=== PATIENT | male | born 1965 | race Caucasian/White ===

== ENCOUNTER 2018-04-22 20:20 | Emergency (ER) | payer SELFPAY ==
[2018-04-22 21:03] LABS: Absolute Monocytes 0.4 K/uL (0.1-1.3); Absolute Neutrophil 5.2 K/uL (1.8-8.0)
[2018-04-22 21:09] LABS: Absolute Lymphocytes (CBC) 1.5 K/uL (0.7-4.9); Basophils % 0.9 % (0-1.3); Eosinophils % 1.3 % (0-4.4); Hematocrit 40.3 % (39.6-49.0); Lymphocytes % 20.4 % (15.3-44.8); MCH 33.4 pg (27.0-35.0); MCV 94.8 fL (80-100); MPV 9.1 fL (7.6-11.3); Monocytes % 6.1 % (3.3-12.3); RBC Red Blood Cell Count 4.25 M/uL (4.33-5.43)
[2018-04-22 21:11] LABS: Protime INR 0.97
[2018-04-22 21:17] LABS: Bicarbonate 22 mEq/L (21-31); Glucose Level 136 mg/dL (65-120); Potassium 3.9 mEq/L (3.6-5.0); Sodium Level 123 mEq/L (135-145)
[2018-04-22 21:24] LABS: ALT/SGPT 17 IU/L (10-60); AST/SGOT 37 IU/L (10-42); Albumin 3.6 g/dL (3.2-5.5); Alkaline Phosphatase 94 IU/L (42-121); BUN Blood Urea Nitrogen 8 mg/dL (6-20); Bilirubin Direct 0.3 mg/dL (0-0.2); Bilirubin Total 1.4 mg/dL (0.3-1.2); Creatine Phosphokinase 196 IU/L (22-269); Magnesium 1.7 mg/dL (1.8-2.5); Protein, Total 7.7 g/dL (6.0-8.3)
[2018-04-22 21:27] LABS: CKMB Creatine Kinase MB 8.2 ng/ml (0.3-4.0)
[2018-04-22 21:30] LABS: Urine White Blood Cell Casts OK
[2018-04-22 21:31] LABS: Blood Morphology Comment NOT SEEN (NOT SEEN); Platelet Estimate ADEQ; Platelets, Giant FEW
--- NOTE | 2018-04-22 21:35 | RAD REPORT ---
EXAM DESCRIPTION: RAD - Chest Single View - 04/22/2018 9:24 pm CLINICAL HISTORY: left side rib pain Chest pain. COMPARISON: Ribs Left dated 04/22/2018 FINDINGS: Portable technique limits examination quality. The lungs are grossly clear. The heart is normal in size. Lucency noted in the lateral eighth and srinath th left ribs compatible with nondisplaced fracture.
--- NOTE | 2018-04-22 21:35 | RAD REPORT ---
EXAM DESCRIPTION: RAD - Ribs Left - 04/22/2018 9:23 pm CLINICAL HISTORY: PAIN COMPARISON: Chest Single View dated 04/22/2018 FINDINGS: Lateral left eighth and ninth ribs demonstrate nondisplaced fracture. No aggressive rib le katherin. No underlying pneumothorax.
[2018-04-22] MEDS ORDERED: MAGNESIUM SULFATE 1 gm IVPB 1 GM/100 ML BAG IV ONE (21:49)
[2018-04-22] MEDS ORDERED: NA CHLORIDE 0.9% 1,000 ML ONE (21:49)
--- NOTE | 2018-04-22 22:38 | EDPHYS ---
Physician Documentation [facility] Name: Uche Lo Age: 53 yrs Sex: Male : 1965 Arrival Date: 04/22/2018 Time: 20:21 Bed 6 Private MD: ED Physician Lino Smith HPI: 04/22 20:48 This 53 yrs old Male presents to ER via Ambulatory with complaints of L Rib cp Pain, Shortness Of Breath. 20:48 The patient or guardian reports chest pain that is located primarily in the left lower cp lateral anterior chest and left lower lateral posterior chest. Onset: 4 month(s) ago. 20:48 The pain does not radiate. Associated signs and symptoms: Pertinent positives: cp shortness of breath, Pertinent negatives: abdominal pain, cough, diaphoresis, dizziness, lower extremity pain, lower extremity swelling, palpitations, recent travel, syncope, vomiting. The chest pain is described as sharp, wax and wanes. Duration: The patient or guardian reports multiple episodes. Modifying factors: the symptoms are aggravated by movement, palpation of area. 20:48 Severity of pain: in the emergency department the pain has improved mildly. Patient cp reports history of fall onto left chest area in December prior to having pain. Patient reports no f/u with doctor since fall. Historical: - Allergies: 20:43 No Known Allergies; mg2 - Home Meds: 20:43 None [Active]; mg2 - PMHx: 20:43 None; mg2 - Immunization history:: Flu vaccine is not up to date. - Social history:: Smoking status: Patient uses tobacco products, smokes one-half pack cigarettes per day. - Ebola Screening: : No symptoms or risks identified at this time. ROS: 20:53 Constitutional: Positive for weight loss, Negative for body aches, chills, fever, poor cp PO intake. 20:53 Eyes: Negative for injury, pain, redness, and discharge. cp 20:53 ENT: Negative for drainage from ear(s), ear pain, sore throat, difficulty swallowing, difficulty handling secretions. 20:53 Neck: Negative for pain with movement, pain at rest, stiffness, bony tenderness. 20:53 Cardiovascular: Positive for left side rib pain, Negative for edema, palpitations. 20:53 Respiratory: Positive for shortness of breath, on exertion. Negative for cough, hemoptysis, wheezing. 20:53 Abdomen/GI: Negative for abdominal pain, nausea, vomiting, and diarrhea, constipation, anorexia, black/tarry stool, rectal bleeding. 20:53 Back: Positive for injury or acute deformity, pain at rest, pain with movement, of the left subscapular area. 20:53 : Negative for urinary symptoms, flank pain, difficulty urinating, bladder incontinence. 20:53 MS/extremity: Negative for injury or acute deformity, decreased range of motion, deformity, paresthesias. 20:53 Skin: Negative for cellulitis, rash. 20:53 Neuro: Negative for altered mental status, headache, loss of consciousness, syncope, near syncope, weakness. 20:53 All other systems are negative. Exam: 20:59 Constitutional: The patient appears in no acute distress, alert, awake, cp non-diaphoretic, non-toxic, well developed, well nourished, uncomfortable. 20:59 Head/Face: Normocephalic, atraumatic. cp 20:59 Eyes: Periorbital structures: appear normal, Pupils: equal, round, and reactive to light and accomodation, Extraocular movements: intact throughout, Conjunctiva: normal, no exudate, no injection, Sclera: no appreciated abnormality, Lids and lashes: appear normal, bilaterally. 20:59 ENT: External ear(s): are unremarkable, Ear canal(s): are normal, clear, TM's: bulging, is not appreciated, bilaterally, dullness, bilaterally, erythema, is not appreciated, bilaterally, Nose: is normal, Mouth: Lips: moist, Oral mucosa: pink and intact, moist, Posterior pharynx: is normal, airway is patent, no erythema, no exudate, Voice: is normal. 20:59 Neck: C-spine: vertebral tenderness, is not appreciated, crepitus, is not appreciated, ROM/movement: is normal, is supple, without pain, no range of motions limitations, no nuchal rigidity, Lymph nodes: no appreciated lymphadenopathy. 20:59 Chest/axilla: Inspection: normal, Palpation: crepitus, is not appreciated, tenderness, that is moderate, of the left lower lateral anterior chest and left lower lateral posterior chest, that partially reproduces the patient's complaints. 20:59 Cardiovascular: Rate: normal, Rhythm: regular, Heart sounds: murmur, not appreciated, rub, not appreciated, gallop, not appreciated, Edema: is not appreciated, JVD: is not appreciated. 20:59 Respiratory: the patient does not display signs of respiratory distress, Respirations: normal, no use of accessory muscles, no retractions, no splinting, no tachypnea, labored breathing, is not present, Breath sounds: decreased breath sounds, that are mild, throughout, rhonchi, are not appreciated, stridor, is not appreciated, wheezing: is not appreciated. 20:59 Abdomen/GI: Inspection: abdomen appears normal, Bowel sounds: active, all quadrants, cp Palpation: abdomen is soft and non-tender, in all quadrants, rebound tenderness, is not appreciated, voluntary guarding, is not appreciated, involuntary guarding, is not appreciated. 20:59 Back: vertebral tenderness, is not appreciated. cp 20:59 Musculoskeletal/extremity: Exam is negative for bony tenderness, calf tenderness, decreased range of motion, deformity, injury. 20:59 Skin: cellulitis, is not appreciated, no rash present. 20:59 Neuro: Orientation: to person, place \T\ time. Mentation: lucid, able to follow commands, Motor: moves all fours, Sensation: no obvious gross deficits, Gait: is steady, at a normal pace, without difficulty. 21:08 ECG was reviewed by the Attending Physician. cp Vital Signs: 20:44 BP 116 / 78; Pulse 76; Resp 20; Temp 98.2; Weight 65.77 kg; Height 6 ft. 0 in. (182.88 mg2 cm); Pain 3/10; 21:24 BP 133 / 67; Pulse 120; Resp 20 S; Pulse Ox 98% on R/A; ea 21:38 BP 123 / 97; Pulse 94; Resp 20; Pulse Ox 97% on R/A; Pain 2/10; mg2 23:00 BP 138 / 65; Pulse 78; Resp 18; Pulse Ox 97% on R/A; Pain 1/10; mg2 20:44 Body Mass Index 19.67 (65.77 kg, 182.88 cm) mg2 MDM: 20:29 Patient medically screened. cp 22:10 Data reviewed: vital signs, nurses notes, lab test result(s), EKG, radiologic studies, cp plain films. 22:10 Test interpretation: by ED physician or midlevel provider: ECG, plain radiologic cp studies. 04/22 20:45 Order name: Basic Metabolic Panel; Complete Time: 21:41 cp /18 21:41 Interpretation: Normal except: NA 123; CL 87; GLUC 136. cp 18 20:45 Order name: BNP; Complete Time: 21:41 cp /18 22:08 Interpretation: BNP 115; Reviewed. cp 04/22 20:45 Order name: CBC with Diff; Complete Time: 21:41 cp /18 21:41 Interpretation: Normal except: RBC 4.25; MCV 94.8. cp /18 20:45 Order name: Ckmb; Complete Time: 21:41 cp /18 20:45 Order name: CPK; Complete Time: 21:41 cp 18 20:45 Order name: LFT's; Complete Time: 21:41 cp 18 21:42 Interpretation: Normal except: BILIT 1.4; BILID 0.3; GLOB 4.1; A/G 0.9. cp 04/22 20:44 Order name: XRAY Ribs LEFT: PA chest film; Complete Time: 21:41 cp 18 20:44 Order name: XRAY Chest (1 view); Complete Time: 21:41 cp 18 20:45 Order name: Magnesium; Complete Time: 21:41 cp 18 22:08 Interpretation: MG 1.7; Reviewed. cp 04/22 20:45 Order name: PT-INR; Complete Time: 21:41 cp 18 20:45 Order name: Ptt, Activated; Complete Time: 21:41 cp 18 20:45 Order name: Troponin (emerg Dept Use Only); Complete Time: 21:41 cp 18 21:11 Order name: CBC Smear Scan; Complete Time: 21:41 EDMS 04/22 22:02 Order name: INCENTIVE SPIROMETRY cp 04/22 20:45 Order name: EKG; Complete Time: 20:46 cp 18 20:45 Order name: Cardiac monitoring; Complete Time: 21:03 cp 18 20:45 Order name: EKG - Nurse/Tech; Complete Time: 21:03 cp 18 20:45 Order name: IV Saline Lock; Complete Time: 21:03 cp 18 20:45 Order name: Labs collected and sent; Complete Time: 21:03 cp 04/22 20:45 Order name: O2 Per Protocol; Complete Time: 21:03 cp 04/22 20:45 Order name: O2 Sat Monitoring; Complete Time: 21:03 cp EC:08 Rate is 88 beats/min. Rhythm is regular. SC interval is normal. QRS interval is normal. cp QT interval is normal. No ST changes noted. Interpreted by me. Reviewed by me. Administered Medications: 22:02 Drug: NS 0.9% 1000 ml Route: IV; Rate: 1 bolus; Site: right antecubital; mg2 23:05 Follow up: Response: No adverse reaction; IV Status: Completed infusion mg2 22:02 Drug: Magnesium Sulfate 1 grams Route: IVPB; Infused Over: 1 hrs; Site: right mg2 antecubital; 23:05 Follow up: IV Status: Completed infusion mg2 Disposition: 04/22/18 22:37 Discharged to Home. Impression: Multiple fractures of ribs, left side - Eigth and Ninth Ribs, nondisplaced. - Condition is Stable. - Discharge Instructions: Hyponatremia, Rib Fracture. - Prescriptions for Cyclobenzaprine 10 mg Oral Tablet - take 1 tablet by ORAL route every 8 hours As needed no driving while taking medication; 20 tablet. Tylenol- Codeine #3 300-30 mg Oral Tablet - take 2 tablets by ORAL route every 6 hours As needed; 20 tablet. Naprosyn 500 mg Oral Tablet - take 1 tablet by ORAL route 2 times per day take with food; 20 tablet. - Medication Reconciliation Form, Thank You Letter, Antibiotic Education, Prescription Opioid Use, Work release form form. - Follow up: Private Physician; When: 2 - 3 days; Reason: Recheck today's complaints. - Problem is new. - Symptoms have improved. - Notes: increase salt intake on food Addendum: 04/24/2018 07:57 Co-signature as Attending Physician, Lino Smith MD I agree with the assessment and p s1 plan of care. Signatures: Dispatcher [employer] EDMS Regino Ridley PA PA cp Singer, Phillip, MD MD ps1 Rene Jaquez RN RN mg2 Corrections: (The following items were deleted from the chart) 04/22 23:25 22:37 04/22/2018 22:37 Discharged to Home. Impression: Multiple fractures of ribs, left mg2 side - Eigth and Ninth Ribs, nondisplaced. Condition is Stable. Forms are Medication Reconciliation Form, Thank You Letter, Antibiotic Education, Prescription Opioid Use. Follow up: Private Physician; When: 2 - 3 days; Reason: Recheck today's complaints. Problem is new. Symptoms have improved. cp
--- NOTE | 2018-04-22 22:38 | ER ---
Nurse's Notes [facility] Name: Uche Lo Age: 53 yrs Sex: Male : 1965 Arrival Date: 04/22/2018 Time: 20:21 Bed 6 Private MD: Diagnosis: Multiple fractures of ribs, left side-Eigth and Ninth Ribs, nondisplaced Presentation: 04/22 20:40 Presenting complaint: Patient states: he has shortness of breath and body wekaness and mg2 unable to do his ADL since . He had history of fall and hit the countertop 3 months ago and was not seen by a physician. Transition of care: patient was not received from another setting of care. Onset of symptoms was December 2017. Risk Assessment: Do you want to hurt yourself or someone else? Patient reports no desire to harm self or others. Initial Sepsis Screen: Does the patient meet any 2 criteria? No. Patient's initial sepsis screen is negative. Does the patient have a suspected source of infection? No. Patient's initial sepsis screen is negative. Care prior to arrival: None. 20:40 Method Of Arrival: Ambulatory mg2 20:40 Acuity: KARLA 3 mg2 Triage Assessment: 21:00 Respiratory: the patient has mild shortness of breath. mg2 21:00 Respiratory: Reports shortness of breath on exertion. mg2 Historical: - Allergies: 20:43 No Known Allergies; mg2 - Home Meds: 20:43 None [Active]; mg2 - PMHx: 20:43 None; mg2 - Immunization history:: Flu vaccine is not up to date. - Social history:: Smoking status: Patient uses tobacco products, smokes one-half pack cigarettes per day. - Ebola Screening: : No symptoms or risks identified at this time. Screenin:44 Abuse screen: Denies threats or abuse. Denies injuries from another. Nutritional mg2 screening: No deficits noted. Tuberculosis screening: No symptoms or risk factors identified. Fall Risk Assessment: 20:45 General: Appears in no apparent distress. uncomfortable, Behavior is calm, cooperative. mg2 Pain: Complains of pain in left side of the trunk Pain does not radiate. Pain currently is 3 out of 10 on a pain scale. Quality of pain is described as aching, Pain began gradually, 3 months ago Is intermittent. Neuro: Level of Consciousness is awake, alert, obeys commands, Oriented to person, place, time, situation. Cardiovascular: Capillary refill < 3 seconds Patient's skin is warm and dry. Respiratory: Airway is patent Respiratory effort is even, unlabored. GI: No signs and/or symptoms were reported involving the gastrointestinal system. : No signs and/or symptoms were reported regarding the genitourinary system. EENT: No signs and/or symptoms were reported regarding the EENT system. Derm: Skin is intact, Skin is dusky. Musculoskeletal: Circulation, motion, and sensation intact. 21:00 Cardiovascular: Rhythm is regular. Respiratory: Breath sounds are clear. mg2 Vital Signs: 20:44 BP 116 / 78; Pulse 76; Resp 20; Temp 98.2; Weight 65.77 kg; Height 6 ft. 0 in. (182.88 mg2 cm); Pain 3/10; 21:24 BP 133 / 67; Pulse 120; Resp 20 S; Pulse Ox 98% on R/A; ea 21:38 BP 123 / 97; Pulse 94; Resp 20; Pulse Ox 97% on R/A; Pain 2/10; mg2 23:00 BP 138 / 65; Pulse 78; Resp 18; Pulse Ox 97% on R/A; Pain 1/10; mg2 20:44 Body Mass Index 19.67 (65.77 kg, 182.88 cm) mg2 ED Course: 20:21 Patient arrived in ED. ds1 20:29 Regino Ridley PA is PHCP. cp 20:29 Lino Smith MD is Attending Physician. cp 20:40 Rene Jaquez RN is Primary Nurse. mg2 20:42 Triage completed. mg2 20:44 Arm band placed on left wrist. mg2 20:55 Initial lab(s) drawn, by mt, sent to lab. Inserted saline lock: 20 gauge in right cc antecubital area, using aseptic technique. Blood collected. 21:00 Patient has correct armband on for positive identification. Placed in gown. Bed in low mg2 position. Side rails up X2. 21:00 EKG done, by ED staff, reviewed by Regino JEAN. cc 21:16 Patient moved to radiology via wheelchair. kc2 21:23 X-ray completed. Patient tolerated procedure well. kc2 21:23 XRAY Ribs LEFT: PA chest film In Process Unspecified. EDMS 21:23 XRAY Chest (1 view) In Process Unspecified. EDMS 21:23 Patient moved back from radiology. kc2 22:34 incentive spirometry- 1500 ml. mg2 23:09 No provider procedures requiring assistance completed. IV discontinued, intact, mg2 bleeding controlled, No redness/swelling at site. Pressure dressing applied. Administered Medications: 22:02 Drug: NS 0.9% 1000 ml Route: IV; Rate: 1 bolus; Site: right antecubital; mg2 23:05 Follow up: Response: No adverse reaction; IV Status: Completed infusion mg2 22:02 Drug: Magnesium Sulfate 1 grams Route: IVPB; Infused Over: 1 hrs; Site: right mg2 antecubital; 23:05 Follow up: IV Status: Completed infusion mg2 Outcome: 22:37 Discharge ordered by MD. cp 23:09 Discharged to home ambulatory. mg2 23:09 Condition: stable 23:09 Discharge instructions given to patient, Instructed on discharge instructions, follow up and referral plans. medication usage, Demonstrated understanding of instructions, follow-up care, medications, Prescriptions given X 3. 23:25 Patient left the ED. mg2 Signatures: Dispatcher [employer] EDNY Fay Anderson ds1 Evie Alexander cc Regino Ridley PA PA Leslie Tam kc2 Jessika Martins, RN RN Rene Waters RN RN mg2 Corrections: (The following items were deleted from the chart) 20:52 20:44 BP 116 / 78; Pulse 76bpm; Resp 20bpm; Pain 3/10; mg2 mg2 23:33 23:24 Respiratory: Reports mg2 mg2
[2018-04-23 00:26] VITALS: TEMP 98.2
[2018-04-23 00:28] VITALS: BP 123/97; O2SAT 97
--- NOTE | 2018-04-23 09:29 | EKG ---
Test Date: 2018-04-22 Test Time: 21:00:09 Student Support Services Director: MEASUREMENT RESULTS: Intervals: Rate: 88 WI: 158 QRSD: 80 QT: 374 QTc: 452 [place]: P: 80 WI: 158 QRS: 82 T: 72 INTERPRETIVE STATEMENTS: Normal sinus rhythm Normal ECG No previous ECG available for comparison Electronically Signed On 04-23-18 09:27:49 CDT by Shakeel Calzada
== END 2018-04-22 23:25 | disposition home or self-care (01) ==
LOC: ER 20:20
DX: S22.42XA Multiple fractures of ribs, left side, initial encounter for closed fracture (principal); F17.210 Nicotine dependence, cigarettes, uncomplicated; E87.1 Hypo-osmolality and hyponatremia; W19.XXXA Unspecified fall, initial encounter; Y93.9 Activity, unspecified; Y92.9 Unspecified place or not applicable; Y99.9 Unspecified external cause status
CPT/HCPCS: 36415; 71045; 80048; 80076; 82550; 82553; 83735; 83880; 84484; 85025; 85610; 85730; 93005; 96365; 99284; J3475; J7030

== ENCOUNTER 2018-04-28 10:26 | Emergency (ER) | payer SELFPAY ==
[2018-04-28 11:51] LABS: Absolute Monocytes 0.3 K/uL (0.1-1.3); Absolute Neutrophil 6.1 K/uL (1.8-8.0); Basophils % 0.8 % (0-1.3); Eosinophils % 0.7 % (0-4.4); Hematocrit 38.5 % (39.6-49.0); Lymphocytes % 13.3 % (15.3-44.8); MCH 32.4 pg (27.0-35.0); MCV 96.1 fL (80-100); Monocytes % 4.4 % (3.3-12.3); RBC Red Blood Cell Count 4.01 M/uL (4.33-5.43)
[2018-04-28 11:58] LABS: Protime INR 1.02
[2018-04-28 12:25] LABS: ALT/SGPT 15 U/L (12-78); AST/SGOT 23 U/L (15-37); Albumin 2.7 g/dL (3.4-5.0); Alkaline Phosphatase 108 U/L (45-117); BUN Blood Urea Nitrogen 11 mg/dL (7-18); Bicarbonate 21 mmol/L (21-32); Bilirubin Direct 0.4 mg/dL (0-0.2); Bilirubin Total 1.1 mg/dL (0.2-1.0); CKMB Creatine Kinase MB < 1.0 ng/mL (0.3-3.6); Creatine Phosphokinase 58 U/L (39-308); Glucose Level 65 mg/dL (74-106); Potassium 3.8 mmol/L (3.5-5.1); Protein, Total 7.3 g/dL (6.4-8.2); Sodium Level 121 mmol/L (136-145)
--- NOTE | 2018-04-28 13:05 | RAD REPORT ---
EXAM DESCRIPTION: RAD - Chest Single View - 04/28/2018 12:19 pm CLINICAL HISTORY: Chest pain, shortness of breath, history of recent left 8 and 9 rib fracture diagn osis COMPARISON: Chest and rib films April 22 TECHNIQUE: AP portable chest image was obtained 1215 hours . FINDINGS: Underlying fibrotic an obstructive lung pattern is still present. No pulmonary contusion, pneumothorax or pleural effusion since the prior imaging. The 8 and 9 rib fractures are again identif iable. These remain nondisplaced. No new rib fracture identifiable on single-view portable imaging. Heart and vasculature are normal. No new or enlarging pleural fluid collection. Trachea is midline. No acute aortic findings suspected. IMPRESSION: Left 8 and 9 rib fractures are again identified. These remain nondisplaced with no addit ional fractures identifiable on single-view portable study. No pneumothorax or pulmonary contusion development since prior imaging.
--- NOTE | 2018-04-28 14:42 | ER ---
Nurse's Notes [facility] Name: Uche Lo Age: 53 yrs Sex: Male : 1965 Arrival Date: 04/28/2018 Time: 10:37 Bed 16 Private MD: Diagnosis: Hyponatremia;Alcohol abuse;Urinary tract infection, site not specified Presentation: 04/28 10:37 Presenting complaint: EMS states: Pt was seen here on Sunday and diagnosed with rib aa5 fracture. Pt reports he was lifting a garage door on Sunday and believes he aggravated pain to ribs. Pt also reports SOB x 2-3 days ago. Denies cough. 10:37 Transition of care: patient was not received from another setting of care. Onset of aa5 symptoms was April 2018. Risk Assessment: Do you want to hurt yourself or someone else? Patient reports no desire to harm self or others. Initial Sepsis Screen: Does the patient meet any 2 criteria? No. Patient's initial sepsis screen is negative. Does the patient have a suspected source of infection? No. Patient's initial sepsis screen is negative. Care prior to arrival: Oxygen administered. via nasal cannula. 10:37 Method Of Arrival: EMS: [facility] aa5 10:37 Acuity: KARLA 3 aa5 Triage Assessment: 19:22 Respiratory: the patient has moderate shortness of breath. ea Historical: - Allergies: 10:41 No Known Allergies; aa5 - Home Meds: 10:41 hydrocodone for rib pain [Active]; aa5 - PMHx: 10:41 None; aa5 - PSHx: 10:41 R hand; aa5 - Immunization history:: Adult Immunizations unknown. - Social history:: Smoking status: Patient uses tobacco products, smokes two packs cigarettes per day. - Ebola Screening: : No symptoms or risks identified at this time. Screenin:40 Abuse screen: Denies threats or abuse. Nutritional screening: No deficits noted. aa5 Tuberculosis screening: No symptoms or risk factors identified. Fall Risk None identified. Assessment: 10:40 General: Appears comfortable, Behavior is calm, cooperative. Pain: Complains of pain in aa5 left lateral anterior chest and left lateral posterior chest Pain radiates to left subscapular area Pain currently is 8 out of 10 on a pain scale. Quality of pain is described as aching, sharp, Pain began Pt states "a few weeks ago" Is continuous, Aggravated by increased activity. Neuro: Level of Consciousness is awake, alert, obeys commands, Oriented to person, place, time, situation. Cardiovascular: Heart tones S1 S2 present Edema is absent. Rhythm is sinus tachycardia. Respiratory: Reports shortness of breath Airway is patent Respiratory effort is even, unlabored, shallow, Respiratory pattern is regular, symmetrical, Breath sounds are diminished bilaterally. Denies cough. GI: No signs and/or symptoms were reported involving the gastrointestinal system. : No signs and/or symptoms were reported regarding the genitourinary system. EENT: No signs and/or symptoms were reported regarding the EENT system. Derm: Skin is pink, warm \\T\\ dry. Musculoskeletal: Range of motion: intact in all extremities. 12:20 Reassessment: Pt lying down in bed resting with eyes closed, respirations are even and aa5 unlabored, skin is pink/warm/dry. Pt awakens easily to verbal stimuli. Pt requesting pain medication at this time, BRANCH BILLING PAYROLL CLERK notified. . Pain: Pain currently is 8 out of 10 on a pain scale. 13:05 Reassessment: Report given to BRIANA Harrell. aa5 13:44 Reassessment: Patient appears in no apparent distress at this time. Patient and/or tl3 family updated on plan of care and expected duration. Pain level reassessed. Patient is alert, oriented x 3, equal unlabored respirations, skin warm/dry/pink. pt has no needs at this time, discussed lab results and POC. 15:33 Reassessment: Patient appears in no apparent distress at this time. No changes from tl3 previously documented assessment. Patient and/or family updated on plan of care and expected duration. Pain level reassessed. Patient is alert, oriented x 3, equal unlabored respirations, skin warm/dry/pink. pt has no needs at this time. 19:23 Reassessment: Patient appears in no apparent distress at this time. No changes from tl3 previously documented assessment. Patient and/or family updated on plan of care and expected duration. Pain level reassessed. Patient is alert, oriented x 3, equal unlabored respirations, skin warm/dry/pink. Vital Signs: 10:40 BP 110 / 85; Pulse 114; Resp 20 S; Temp 99.4(O); Pulse Ox 100% on 2 lpm NC; Weight aa5 61.23 kg (R); Height 6 ft. 0 in. (182.88 cm) (R); Pain 8/10; 11:30 BP 102 / 88; Pulse 105; Resp 18 S; Pulse Ox 100% on 2 lpm NC; aa5 12:24 BP 115 / 90; Pulse 99; Resp 20 S; Pulse Ox 100% on 2 lpm NC; aa5 12:26 Pulse Ox 100% on R/A; aa5 12:50 Pulse 95; Resp 18 S; Pulse Ox 100% on R/A; aa5 13:44 BP 125 / 84; Pulse 93; Resp 16; Pulse Ox 98% on R/A; tl3 15:33 BP 119 / 92; Pulse 98; Resp 18; Pulse Ox 100% on 2 lpm NC; tl3 19:23 BP 137 / 98; Pulse 82; Resp 18; Pulse Ox 98% ; tl3 10:40 Body Mass Index 18.31 (61.23 kg, 182.88 cm) aa5 12:26 O2 adm d/c'd aa5 ED Course: 10:37 Patient arrived in ED. aa5 10:37 Arm band placed on Patient placed in an exam room, on a stretcher. aa5 10:37 Patient has correct armband on for positive identification. Placed in gown. Bed in low aa5 position. Call light in reach. Side rails up X2. 10:37 quality assurance monitor body on. Pulse ox on. NIBP on. aa5 10:38 Lisa Shankar, BRIANA is Primary Nurse. aa5 10:40 Triage completed. aa5 10:42 Cayden Ornelas NP is PHCP. pm1 10:42 Regino Brink MD is Attending Physician. pm1 10:50 EKG done, by ED staff, reviewed by Cayden Ornelas NP. jb1 12:18 X-ray completed. Portable x-ray completed in exam room. Patient tolerated procedure ag1 well. 12:18 XRAY Chest (1 view) In Process Unspecified. EDMS 12:22 No provider procedures requiring assistance completed. aa5 14:39 Gricelda Mario MD is Hospitalizing Provider. pm1 19:21 IV discontinued, intact, bleeding controlled, No redness/swelling at site. Pressure ea dressing applied. Administered Medications: 16:19 Drug: Banana Bag - (NS 0.9% 1000 ml, foLIC Acid 1 mg, Thiamine 100 mg, Multivitamin 1 tl3 amp) {Note: 150 ml per hour.} Route: IV; Rate: calculated rate; Site: right antecubital; Delivery: Primary tubing; 19:21 Follow up: IV Status: Completed infusion; IV Intake: 1000ml ea 17:35 Drug: LevaQUIN 500 mg Route: PO; tl3 19:20 Follow up: Response: No adverse reaction ea 17:36 Drug: NS 0.9% 1000 ml Route: IV; Rate: 1000 ml; Site: left antecubital; tl3 19:21 Follow up: IV Status: Completed infusion; IV Intake: 1000ml ea Intake: 19:21 IV: 1000ml; Total: 1000ml. ea 19:21 IV: 1000ml; Total: 2000ml. ea Outcome: 14:42 Decision to Hospitalize by Provider. pm1 17:09 Discharge ordered by MD. pm1 19:21 Discharged to home via wheelchair. ea 19:21 Condition: stable 19:21 Discharge instructions given to patient, Instructed on discharge instructions, follow up and referral plans. medication usage, Demonstrated understanding of instructions, follow-up care, medications, Prescriptions given X 1. 19:25 Patient left the ED. tl3 Addendum: 05/01/2018 08:40 Addendum: Culture Results: Positive urine culture. No further action required. Bacteria i w sensitive to prescribed antibiotic. Signatures: Dispatcher [employer] EDOmid Mcdaniel jb1 Jolanta Javier RN RN iw Calderon, Audri, RN RN aa5 Carie Bianchi ag1 Cayden Ornelas, BETTY BRANCH BILLING PAYROLL CLERK pm1 Jessika Martins RN RN ea Lowrey, Tammy, RN RN tl3 Corrections: (The following items were deleted from the chart) 04/28 12:24 12:24 BP 115 / 90; Pulse 99bpm; Resp 20bpm; Spontaneous; Pulse Ox 100% RA; aaAlejandro aa5
--- NOTE | 2018-04-28 14:42 | EDPHYS ---
Physician Documentation [facility] Name: Uche oL Age: 53 yrs Sex: Male : 1965 Arrival Date: 04/28/2018 Time: 10:37 Bed 16 Private MD: ED Physician Regino Brink HPI: 04/28 12:00 This 53 yrs old Male presents to ER via EMS with complaints of Shortness Of pm1 Breath. 12:00 The patient has shortness of breath at rest. Onset: The symptoms/episode began/occurred pm1 3 day(s) ago. Duration: The symptoms are continuous. The patient's shortness of breath. 12:00 Associated signs and symptoms: Pertinent negatives: chest pain, non-productive cough, pm1 productive cough. The patient has been recently seen at the [facility] Emergency Department, last week, for similar complaints labs were performed, X-rays were performed, was given a prescription for pain medications, Same complaint. Onset of shortness of breath and left rib pain 4 months ago after a fall in December. He was seen her in the ER on 04/22/2018 and diagnosed with left rib fractures. Patient is presenting to the ER today with complaints of left rib pain and generalized weakness. patient smokes 1 pack per day and drinks 6-8 beers on the weekdays and 12-18 beers on the weekend. Historical: - Allergies: 10:41 No Known Allergies; aa5 - Home Meds: 10:41 hydrocodone for rib pain [Active]; aa5 - PMHx: 10:41 None; aa5 - PSHx: 10:41 R hand; aa5 - Immunization history:: Adult Immunizations unknown. - Social history:: Smoking status: Patient uses tobacco products, smokes two packs cigarettes per day. - Ebola Screening: : No symptoms or risks identified at this time. ROS: 12:00 Constitutional: Negative for fever, chills, and weight loss, Eyes: Negative for injury, pm1 pain, redness, and discharge, ENT: Negative for injury, pain, and discharge, Neck: Negative for injury, pain, and swelling, Cardiovascular: Negative for chest pain, palpitations, and edema. 12:00 Abdomen/GI: Negative for abdominal pain, nausea, vomiting, diarrhea, and constipation, Back: Negative for injury and pain, : Negative for injury, bleeding, discharge, and swelling, MS/Extremity: Negative for injury and deformity, Skin: Negative for injury, rash, and discoloration. 12:00 Respiratory: Positive for shortness of breath, Negative for cough, sputum production, wheezing. 12:00 Neuro: Positive for weakness, Negative for altered mental status, dizziness, headache, seizure activity, speech changes, syncope, near syncope. Exam: 12:00 Constitutional: This is a well developed, well nourished patient who is awake, alert, pm1 and in no acute distress. Head/Face: Normocephalic, atraumatic. Eyes: Pupils equal round and reactive to light, extra-ocular motions intact. Lids and lashes normal. Conjunctiva and sclera are non-icteric and not injected. Cornea within normal limits. Periorbital areas with no swelling, redness, or edema. ENT: Nares patent. No nasal discharge, no septal abnormalities noted. Tympanic membranes are normal and external auditory canals are clear. Oropharynx with no redness, swelling, or masses, exudates, or evidence of obstruction, uvula midline. Mucous membranes moist. Neck: Trachea midline, no thyromegaly or masses palpated, and no cervical lymphadenopathy. Supple, full range of motion without nuchal rigidity, or vertebral point tenderness. No Meningismus. Chest/axilla: Normal chest wall appearance and motion. Nontender with no deformity. No lesions are appreciated. Cardiovascular: Regular rate and rhythm with a normal S1 and S2. No gallops, murmurs, or rubs. Normal PMI, no JVD. No pulse deficits. Respiratory: Lungs have equal breath sounds bilaterally, clear to auscultation and percussion. No rales, rhonchi or wheezes noted. No increased work of breathing, no retractions or nasal flaring. Abdomen/GI: Soft, non-tender, with normal bowel sounds. No distension or tympany. No guarding or rebound. No evidence of tenderness throughout. Back: No spinal tenderness. No costovertebral tenderness. Full range of motion. Skin: Warm, dry with normal turgor. Normal color with no rashes, no lesions, and no evidence of cellulitis. MS/ Extremity: Pulses equal, no cyanosis. Neurovascular intact. Full, normal range of motion. 12:00 Neuro: Orientation: is normal, Motor: is normal, moves all fours, Gait: is steady, at a normal pace, without difficulty. Vital Signs: 10:40 BP 110 / 85; Pulse 114; Resp 20 S; Temp 99.4(O); Pulse Ox 100% on 2 lpm NC; Weight aa5 61.23 kg (R); Height 6 ft. 0 in. (182.88 cm) (R); Pain 8/10; 11:30 BP 102 / 88; Pulse 105; Resp 18 S; Pulse Ox 100% on 2 lpm NC; aa5 12:24 BP 115 / 90; Pulse 99; Resp 20 S; Pulse Ox 100% on 2 lpm NC; aa5 12:26 Pulse Ox 100% on R/A; aa5 12:50 Pulse 95; Resp 18 S; Pulse Ox 100% on R/A; aa5 13:44 BP 125 / 84; Pulse 93; Resp 16; Pulse Ox 98% on R/A; tl3 15:33 BP 119 / 92; Pulse 98; Resp 18; Pulse Ox 100% on 2 lpm NC; tl3 19:23 BP 137 / 98; Pulse 82; Resp 18; Pulse Ox 98% ; tl3 10:40 Body Mass Index 18.31 (61.23 kg, 182.88 cm) aa5 12:26 O2 adm d/c'd aa5 MDM: 11:03 Patient medically screened. varinder 14:37 Data reviewed: vital signs. Data interpreted: Pulse oximetry: on room air is 98 %. pm1 Interpretation: normal. Counseling: I had a detailed discussion with the patient and/or guardian regarding: the historical points, exam findings, and any diagnostic results supporting the discharge/admit diagnosis, lab results, radiology results, the need for further work-up and treatment in the hospital, to return to the emergency department if symptoms worsen or persist or if there are any questions or concerns that arise at home. 15:40 Physician consultation: Gricelda Mario MD was contacted at 15:30, regarding admission, pm1 patient's condition, and will see patient in ED. 17:05 Physician consultation: Gricelda Mario MD would like medications started, Patient can be pm1 discharged home. Give banana bag and NS 1 liter after banana bag completion. Treat UTI with Levaquin, in the emergency department to see patient at 17:05. 04/28 11:22 Order name: Basic Metabolic Panel; Complete Time: 12:42 pm04/28 11:22 Order name: CBC with Diff; Complete Time: 12:18 pm04/28 11:22 Order name: Ckmb; Complete Time: 12:42 pm04/28 11:22 Order name: CPK; Complete Time: 12:42 pm04/28 11:22 Order name: LFT's; Complete Time: 12:42 pm04/28 11:22 Order name: Magnesium; Complete Time: 12:42 pm04/28 11:22 Order name: PT-INR; Complete Time: 12:18 pm04/28 11:22 Order name: Ptt, Activated; Complete Time: 12:18 pm04/28 11:22 Order name: Troponin (emerg Dept Use Only); Complete Time: 12:23 pm04/28 11:22 Order name: XRAY Chest (1 view); Complete Time: 13:16 pm04/28 15:08 Order name: Urine Microscopic Only; Complete Time: 17:04 pm04/28 15:11 Order name: Urine Dipstick--Ancillary (enter results); Complete Time: 17:04 bd 04/28 15:36 Order name: Urine Culture EDMS 04/28 11:22 Order name: EKG; Complete Time: 11:23 pm04/28 11:22 Order name: Cardiac monitoring; Complete Time: 11:30 pm04/28 11:22 Order name: EKG - Nurse/Tech; Complete Time: 11:30 pm04/28 11:22 Order name: IV Saline Lock; Complete Time: 11:48 pm04/28 11:22 Order name: Labs collected and sent; Complete Time: 11:48 pm04/28 11:22 Order name: O2 Per Protocol; Complete Time: 11:30 pm04/28 11:22 Order name: O2 Sat Monitoring; Complete Time: 11:30 pm04/28 11:22 Order name: Urine Dipstick-Ancillary (obtain specimen); Complete Time: 15:33 pm1 Administered Medications: 16:19 Drug: Banana Bag - (NS 0.9% 1000 ml, foLIC Acid 1 mg, Thiamine 100 mg, Multivitamin 1 tl3 amp) {Note: 150 ml per hour.} Route: IV; Rate: calculated rate; Site: right antecubital; Delivery: Primary tubing; 19:21 Follow up: IV Status: Completed infusion; IV Intake: 1000ml ea 17:35 Drug: LevaQUIN 500 mg Route: PO; tl3 19:20 Follow up: Response: No adverse reaction 17:36 Drug: NS 0.9% 1000 ml Route: IV; Rate: 1000 ml; Site: left antecubital; tl3 19:21 Follow up: IV Status: Completed infusion; IV Intake: 1000ml ea Disposition: 04/29 16:14 Co-signature as Attending Physician, Regino Brink MD I agree with the assessment and varinder plan of care. Disposition: 04/28/18 17:09 Discharged to Home. Impression: Hyponatremia, Alcohol abuse, Urinary tract infection, site not specified. - Condition is Stable. - Discharge Instructions: Hyponatremia, Urinary Tract Infection, Alcohol Abuse and Nutrition. - Prescriptions for Levaquin 500 mg Oral Tablet - take 1 tablet by ORAL route once daily for 7 days; 7 tablet. - Medication Reconciliation Form, Thank You Letter, Antibiotic Education, Prescription Opioid Use form. - Follow up: Emergency Department; When: As needed; Reason: Worsening of condition. Follow up: Private Physician; When: 2 - 3 days; Reason: Recheck today's complaints, Continuance of care, Re-evaluation by your physician. - Problem is new. - Symptoms have improved. Signatures: Dispatcher [employer] Regino Monterroso MD MD cha Calderon, Audri, RN RN aa5 Cayden Ornelas, BETTY PLANT OPERATIONS COORDINATOR pm1 Sharri Arceo RN RN tl3 Jessika Martins RN, ea Corrections: (The following items were deleted from the chart) 04/28 17:08 14:42 Hospitalization Ordered by Gricelda Mario MD for Inpatient Admission. Preliminary pm1 diagnosis is Hyponatremia; Weakness. Bed requested for Telemetry/MedSurg (Inpatient). Status is Inpatient Admission. Condition is Stable. Problem is new. Symptoms have improved. UTI on Admission? No. pm1 17:09 17:09 04/28/2018 17:09 Discharged to Home. Impression: Hyponatremia; Alcohol abuse. pm1 Condition is Stable. Forms are Medication Reconciliation Form, Thank You Letter, Antibiotic Education, Prescription Opioid Use. Follow up: Emergency Department; When: As needed; Reason: Worsening of condition. Follow up: Private Physician; When: 2 - 3 days; Reason: Recheck today's complaints, Continuance of care, Re-evaluation by your physician. Problem is new. Symptoms have improved. pm1 19:25 17:09 04/28/2018 17:09 Discharged to Home. Impression: Hyponatremia; Alcohol abuse; tl3 Urinary tract infection, site not specified. Condition is Stable. Forms are Medication Reconciliation Form, Thank You Letter, Antibiotic Education, Prescription Opioid Use. Follow up: Emergency Department; When: As needed; Reason: Worsening of condition. Follow up: Private Physician; When: 2 - 3 days; Reason: Recheck today's complaints, Continuance of care, Re-evaluation by your physician. Problem is new. Symptoms have improved. pm1
[2018-04-28 15:16] LABS: Urine Blood 1+ (NEG); Urine Glucose NEGATIVE (NEG); Urine Protein NEGATIVE (NEG); Urine Specific Gravity <1.005 (1.005-1.030); Urine pH 5.5 (5.0-7.0)
[2018-04-28 15:34] LABS: Urine Bacteria LOADED /HPF (NONE SEEN); Urine Culture Reflex Order REFLEXED; Urine RBC <5 /HPF (NONE SEEN)
[2018-04-28] MEDS ORDERED: FOLIC ACID 1 MG, MULTIVITAMINS INJ 10 ML, THIAMINE HCL 100 MG in NA CHLORIDE 0.9% 1,000 ML IV SCH (16:00)
--- NOTE | 2018-04-28 17:14 | P.CNS ---
Date of Consult: 04/28/18 HPI: 53 y.o M with significant pmhx of alcohol abuse and chronic Hyponatremia who presented to the hospital with Generalized weakness for 1 week. Pt has been drinking 6 to 8 cans of beer every night and on the weekend he drinks 16-18 cans of beer. He has been needing to take more breaks than usual when walking around. Was seen in the hospital 2 week ago for rib fracture and hyponatermia. Medicine was consulted for admission for generalized weakness. PE: Vitals: Stable Gen, NAD, AAOx3 CVS: RRR, No murmer Lungs: CTABL, no W.R.R ABd: ND, NT soft + BS Ext: Negative for swelling + Pulse labs 04/28/18 15:11: Urine pH 5.5, Ur Specific [place] <1.005 L, Urine Ketones 2+ H, Urine Blood 1+ H, Urine Nitrite Positive H, Ur Leukocyte Esterase Negative, Urine Glucose Negative, Urine Total Protein Negative 04/28/18 15:00: Urine RBC <5, Urine WBC 10-20 H, Ur Squamous Epith Cells <5, Urine Bacteria Loaded H, Urine Culture Reflexed Reflexed 04/28/18 11:40: Rapid Troponin I < 0.02 04/28/18 11:40: PT 12.0, INR 1.02, APTT 32.8 04/28/18 11:40: WBC 7.6, RBC 4.01 L, Hgb 13.0 L, Hct 38.5 L, MCV 96.1, MCH 32.4 , MCHC 33.7, RDW 13.5, Plt Count 215, MPV 9.0, Neutrophils % 80.8 H, Lymphocytes % 13.3 L, Monocytes % 4.4, Eosinophils % 0.7, Basophils % 0.8, Absolute Neutrophils 6.1, Absolute Lymphocytes 1.0, Absolute Monocytes 0.3, Absolute Eosinophils 0.1, Absolute Basophils 0.1 04/28/18 11:40: Sodium 121 L, Potassium 3.8, Chloride 88 L, Carbon Dioxide 21, BUN 11, Creatinine 0.80, Estimated GFR > 90, Glucose 65 L, Calcium 8.8, Magnesium 2.0, Total Bilirubin 1.1 H, Direct Bilirubin 0.4 H, AST 23, ALT 15, Alkaline Phosphatase 108, Creatine Kinase 58, CK-MB (CK-2) < 1.0, Serum Total Protein 7.3, Albumin 2.7 L, Globulin 4.6 H, Albumin/Globulin Ratio 0.6 L A/p: 56 y/o with significant pmhx with generalized weakness most likely 2.2 to chronic Hyponatremia, UTI and Muscle Relaxers. All of which resolved by the time I saw him in the ER. States he feels much better now after IV fluids and wants to go home. 1. Hyponatermia: Chronic most likely 2.2 to alcohol abuse. IV fluids and then High NA diet at home. Abstain from alcohol advise 2. UTI: PO levaquin. No symptoms noted. 3. Rib fracture: Chronic. PO pain meds and caution with muscle Relexers. DISPO: Discharge home under stable condition.
[2018-04-28] MEDS ORDERED: Levofloxacin500mg IV 500 MG/100 ML BAG IV ONE ×2 (17:28→17:29)
[2018-04-28] MEDS ORDERED: NA CHLORIDE 0.9% 1,000 ML ONE (17:28)
[2018-04-28 19:29] VITALS: TEMP 99.4
[2018-04-28 19:37] VITALS: BP 137/98; O2SAT 98
--- NOTE | 2018-04-29 06:54 | EKG ---
Test Date: 2018-04-28 Test Time: 10:42:50 Tetryl Nitrator Operator: CARLITOS MEASUREMENT RESULTS: Intervals: Rate: 113 [place]: 152 QRSD: 82 QT: 324 QTc: 444 [place]: P: 83 [place]: 152 QRS: 134 T: 68 INTERPRETIVE STATEMENTS: Sinus tachycardia Right axis deviation Anterior infarct, age undetermined Abnormal ECG Compared to ECG 04/22/2018 21:00:09 Right-axis deviation now present Myocardial infarct finding now present Sinus rhythm no longer present Electronically Signed On 04-29-18 06:52:42 CDT by Bentley Dunne
== END 2018-04-28 19:25 | disposition home or self-care (01) ==
LOC: ER 10:26
DX: E87.1 Hypo-osmolality and hyponatremia (principal); N39.0 Urinary tract infection, site not specified; F10.10 Alcohol abuse, uncomplicated; F17.210 Nicotine dependence, cigarettes, uncomplicated; Z88.5 Allergy status to narcotic agent
CPT/HCPCS: 36415; 71045; 80048; 80076; 81003; 81015; 82550; 82553; 83735; 84484; 85025; 85610; 85730; 87077; 87086; 87088; 87186; 93005; 96365; 96366; 99284; J3411; J7030

== ENCOUNTER 2018-06-25 10:51 | Inpatient (IN) | payer SELFPAY ==
[2018-06-25] MEDS ORDERED: MORPHINE 4 MG/ML SYR ONE ×2 (11:18→13:17)
[2018-06-25] MEDS ORDERED: BUPIVACAINE 0.5% PF 10 ML VIAL ONE (11:18)
[2018-06-25] MEDS ORDERED: LIDOCAINE 1% MPF 5 ML VIAL ONE (11:18)
[2018-06-25] MEDS ORDERED: ONDANSETRON 4 MG/2 ML VIAL ONE (11:18)
[2018-06-25] MEDS ORDERED: TETANUS & DIPHTHERIA TOX,ADULT 0.5 ML VIAL ONE (11:19)
--- NOTE | 2018-06-25 11:45 | RAD REPORT ---
EXAM DESCRIPTION: RAD - Hand Left 3 View - 06/25/2018 11:37 am CLINICAL HISTORY: laceration injury COMPARISON: No comparisons FINDINGS: Comminuted fracture is seen involving the distal second metacarpal as well as the proximal phalanx of the second finger. Second MCP joint involvement is seen. Laceration is noted along the ra dial aspect of the second digit a small amount of air is seen in the soft tissues of the second web s pace.
[2018-06-25] MEDS ORDERED: CEFAZOLIN/SWI 1gm 1 GM/10 ML SYR ONE (12:10)
--- NOTE | 2018-06-25 12:37 | EDPHYS ---
Physician Documentation [facility] Name: Uche Lo Age: 53 yrs Sex: Male : 1965 Arrival Date: 06/25/2018 Time: 10:55 Bed 18 Private MD: Eric Yao ED Physician Akin Rollins HPI: 06/25 11:00 This 53 yrs old Male presents to ER via Ambulatory with complaints of cp Laceration - FINGER. 11:00 The patient or guardian reports deformity, injury, laceration. cp 11:00 The complaints affect the left index finger. Context: The problem was sustained at cp work. Onset: The symptoms/episode began/occurred just prior to arrival. Associated signs and symptoms: Pertinent negatives: cyanosis distally, numbness distally. 11:00 Patient reports injury occurred after finger got caught in spring of garage door. cp Historical: - Allergies: 11:05 No Known Allergies; hj - Home Meds: 11:05 hydrocodone for rib pain [Active]; hj - PMHx: 11:05 None; hj - PSHx: 11:05 L hand surgery; hj - Immunization history:: Adult Immunizations unknown. - Social history:: Smoking status: Patient uses tobacco products, smokes one pack cigarettes per day. Patient uses alcohol, on a daily basis. claims drinking about a 6 pack/day. - Ebola Screening: : Patient negative for fever greater than or equal to 101.5 degrees Fahrenheit, and additional compatible Ebola Virus Disease symptoms Patient denies exposure to infectious person Patient denies travel to an Ebola-affected area in the 21 days before illness onset. ROS: 11:05 Constitutional: Negative for body aches, chills, fever, poor PO intake. cp 11:05 Eyes: Negative for injury, pain, redness, and discharge. cp 11:05 ENT: Negative for drainage from ear(s), ear pain, sore throat, difficulty swallowing, difficulty handling secretions. 11:05 Cardiovascular: Negative for chest pain, edema, palpitations. 11:05 Respiratory: Negative for cough, shortness of breath, wheezing. 11:05 Abdomen/GI: Negative for abdominal pain, nausea, vomiting, and diarrhea. 11:05 MS/extremity: Positive for injury or acute deformity, decreased range of motion, laceration, pain, of the left index finger. 11:05 All other systems are negative. Exam: 11:10 Constitutional: The patient appears in no acute distress, alert, awake, non-toxic, well cp developed, well nourished. 11:10 Head/Face: Normocephalic, atraumatic. cp 11:10 Eyes: Periorbital structures: appear normal, Pupils: equal, round, and reactive to light and accomodation, Extraocular movements: intact throughout, Conjunctiva: normal, no exudate, no injection, Sclera: no appreciated abnormality, Lids and lashes: appear normal, bilaterally. 11:10 ENT: External ear(s): are unremarkable, Nose: is normal, Mouth: Lips: moist, Oral mucosa: moist, Posterior pharynx: is normal, airway is patent, no erythema, no exudate. 11:10 Neck: ROM/movement: is normal, is supple, without pain, no range of motions limitations, no nuchal rigidity. 11:10 Chest/axilla: Inspection: normal, Palpation: is normal, no crepitus, no tenderness. 11:10 Cardiovascular: Rate: normal, Rhythm: regular, Heart sounds: murmur, not appreciated, Edema: is not appreciated, JVD: is not appreciated. 11:10 Respiratory: the patient does not display signs of respiratory distress, Respirations: normal, no use of accessory muscles, no retractions, no splinting, no tachypnea, labored breathing, is not present, Breath sounds: are clear throughout, no decreased breath sounds, no stridor, no wheezing. 11:10 Abdomen/GI: Inspection: abdomen appears normal, Bowel sounds: active, all quadrants, Palpation: abdomen is soft and non-tender, in all quadrants. 11:10 Musculoskeletal/extremity: Extremities: grossly normal except: noted in the left index finger: decreased ROM, deformity, ROM: limited active range of motion, in the left index finger, Perfusion: the extremity is with brisk capillary refill, Sensation intact. 11:10 Skin: injury, laceration(s), the wound is approximately 5 cm(s), of the dorsum left index extending distal , that can be described as contaminated, irregular, with mild bleeding. 11:10 Neuro: Sensation: 2 point discrimination is normal. 12:20 ECG was reviewed by the Attending Physician. cp Vital Signs: 11:07 BP 134 / 101; Pulse 74; Resp 18; Temp 97.3(TE); Pulse Ox 98% on R/A; Weight 58.97 kg; hj Height 6 ft. 0 in. (182.88 cm); Pain 0/10; 12:00 BP 130 / 84; Pulse 62; Resp 18; Pulse Ox 100% on R/A; rb1 13:07 BP 153 / 100; Pulse 60; Resp 17; Pulse Ox 98% on R/A; rb1 11:07 Body Mass Index 17.63 (58.97 kg, 182.88 cm) hj MDM: 10:57 Patient medically screened. cp 11:55 Data reviewed: vital signs, nurses notes, radiologic studies, plain films. cp 11:55 Test interpretation: by ED physician or midlevel provider: plain radiologic studies. cp 12:00 Physician consultation: Monster Garrido MD was called at 12:00, regarding consult, cp patient's condition. 12:00 Differential diagnosis: dislocation, open fracture, closed fracture, contusion, tendon cp injury, simple laceration, degloving injury. 12:35 Physician consultation: Derik Han DO was contacted at 12:35, regarding admission, cp to the operating room, patient's condition. 06/25 12:09 Order name: CBC with Diff cp 06/25 12:09 Order name: BMP cp 06/25 12:09 Order name: PT-INR cp 06/25 12:09 Order name: Ptt, Activated cp 06/25 12:56 Order name: Urinalysis EDMS 06/25 12:56 Order name: Basic Metabolic Panel EDMS 06/25 12:56 Order name: Basic Metabolic Panel EDMS 06/25 12:56 Order name: Basic Metabolic Panel EDMS 06/25 12:56 Order name: Basic Metabolic Panel EDMS 06/25 12:56 Order name: CBC with Automated Diff EDMS 06/25 12:56 Order name: CBC with Automated Diff EDMS 06/25 12:56 Order name: CBC with Automated Diff EDMS 06/25 12:56 Order name: CBC with Automated Diff EDMS 06/25 12:56 Order name: Magnesium EDMS 06/25 11:02 Order name: IV; Complete Time: 11:29 cp 06/25 11:02 Order name: XRAY Hand LEFT 3 View cp 06/25 12:09 Order name: XRAY Chest (1 view) cp 06/25 12:09 Order name: EKG; Complete Time: 12:10 cp 06/25 12:56 Order name: CONS Physician Consult EDMT 06/25 12:56 Order name: NPO EDMS 06/25 12:56 Order name: Magnesium EDMS 06/25 12:56 Order name: Magnesium EDMS 06/25 12:56 Order name: Magnesium EDMS 06/25 11:03 Order name: Dressing - Wound; Complete Time: 14:50 cp 06/25 11:03 Order name: Gloves, Sterile; Complete Time: 11:31 cp 06/25 11:03 Order name: Setup Suture Tray; Complete Time: 11:31 cp 06/25 12:09 Order name: NPO; Complete Time: 14:12 cp 06/25 12:11 Order name: Misc. Order: wet to dry dressing; Complete Time: 14:12 cp EC:20 Rate is 62 beats/min. QRS [place] is Normal. MI interval is normal. QRS interval is cp normal. QT interval is normal. Interpreted by me. Reviewed by me. Administered Medications: 11:05 Drug: Tetanus-Diphtheria Toxoid Adult 0.5 ml {Forensic Photographer: [employer]. Exp: rb1 07/24/2020. Lot #: [id number]. } Route: IM; Site: right deltoid; 11:20 Follow up: Response: No adverse reaction rb1 11:20 Drug: Zofran 4 mg Route: IVP; Site: right antecubital; rb1 11:35 Follow up: Response: No adverse reaction; Nausea is decreased rb1 11:20 Drug: morphine 4 mg Route: IVP; Site: right antecubital; rb1 11:35 Follow up: Response: No adverse reaction; Pain is decreased rb1 12:16 Drug: Ancef 1 grams Route: IVPB; Site: right antecubital; rb1 13:24 Drug: morphine 4 mg Route: IVP; Site: right forearm; rb1 13:25 Follow up: Response: No adverse reaction; Medication administered at discharge. rb1 14:12 Not Given (provider changed order): Marcaine (0.5 %) 5 ml 10 ml Infiltration once rb1 14:13 Not Given (provider canceled): Lidocaine (1 %) 5 ml 5 ml Infiltration once; to bedside rb1 Disposition: 14:22 Co-signature as Attending Physician, Akin Rollins MD. rn Disposition: 06/25/18 12:36 Hospitalization ordered by Derik Han for Observation. Preliminary diagnosis is Open fracture left index finger. - Bed requested for Telemetry/MedSurg (observation). - Status is Observation. rb1 - Condition is Stable. - Problem is new. - Symptoms have improved. UTI on Admission? No Signatures: Dispatcher [employer] EDMS Akin Rollins MD MD rn Joaquin, Henry, RN RN hj Page, Corey, PA PA cp Barber, Rebecca, RN RN rb1 Corrections: (The following items were deleted from the chart) 13:29 12:36 Hospitalization Ordered by Derik Han DO for Observation. Preliminary rb1 diagnosis is Open fracture left index finger. Bed requested for Telemetry/MedSurg (observation). Status is Observation. Condition is Stable. Problem is new. Symptoms have improved. UTI on Admission? No. cp
--- NOTE | 2018-06-25 12:37 | ER ---
Nurse's Notes [facility] Name: Uche Lo Age: 53 yrs Sex: Male : 1965 Arrival Date: 06/25/2018 Time: 10:55 Bed 18 Private MD: Eric Yao Diagnosis: Open fracture left index finger Presentation: 06/25 11:02 Presenting complaint: Patient states: my L index finger got caught while i was doing hj something on my garage door; got a huge cut and was bleeding; happened an hour ago; pain is 0/10;. Transition of care: patient was not received from another setting of care. Complicating Factors: There are no complicating factors for this patient. Onset of symptoms was June 25, 2018. Risk Assessment: Do you want to hurt yourself or someone else?. Initial Sepsis Screen: Does the patient meet any 2 criteria? No. Patient's initial sepsis screen is negative. Does the patient have a suspected source of infection? No. Patient's initial sepsis screen is negative. Care prior to arrival: None. 11:02 Method Of Arrival: Ambulatory 11:02 Acuity: KARLA 3 Triage Assessment: 11:06 General: Appears in no apparent distress. uncomfortable, Behavior is calm, cooperative, hj appropriate for age. Pain: Complains of pain in left hand. Injury Description: Laceration sustained to dorsal aspect of middle phalanx of left index finger and dorsal aspect of proximal phalanx of left index finger is jagged, 2.6 to 7.5 cm long, bleeding moderately, was sustained 30-60 minutes ago. is bleeding moderately. Historical: - Allergies: 11:05 No Known Allergies; hj - Home Meds: 11:05 hydrocodone for rib pain [Active]; hj - PMHx: 11:05 None; - PSHx: 11:05 L hand surgery; - Immunization history:: Adult Immunizations unknown. - Social history:: Smoking status: Patient uses tobacco products, smokes one pack cigarettes per day. Patient uses alcohol, on a daily basis. claims drinking about a 6 pack/day. - Ebola Screening: : Patient negative for fever greater than or equal to 101.5 degrees Fahrenheit, and additional compatible Ebola Virus Disease symptoms Patient denies exposure to infectious person Patient denies travel to an Ebola-affected area in the 21 days before illness onset. Screenin:06 Abuse screen: Denies threats or abuse. Denies injuries from another. Nutritional hj screening: No deficits noted. Tuberculosis screening: No symptoms or risk factors identified. Fall Risk None identified. Assessment: 11:00 General: Appears in no apparent distress. comfortable, Behavior is calm, cooperative. rb1 Pain: Pain: Complains of pain in left index finger Pain currently is 4 out of 10 on a pain scale. Pain began 1 hour ago. Neuro: Level of Consciousness is awake, alert, obeys commands, Oriented to person, place, time, situation. Cardiovascular: Capillary refill < 3 seconds is brisk in bilateral fingers. Respiratory: Airway is patent Respiratory effort is even, unlabored, Respiratory pattern is regular, symmetrical. GI: No signs and/or symptoms were reported involving the gastrointestinal system. : No signs and/or symptoms were reported regarding the genitourinary system. Derm: Skin is pink, warm \T\ dry. Injury Description: Laceration sustained to left index finger is contaminated, jagged, was sustained 30-60 minutes ago. is bleeding moderately. 11:07 Musculoskeletal: wound. Injury Description: Laceration. 12:00 Reassessment: Patient appears in no apparent distress at this time. Patient and/or rb1 family updated on plan of care and expected duration. Pain level reassessed. Patient is alert, oriented x 3, equal unlabored respirations, skin warm/dry/pink. 13:00 Reassessment: Patient appears in no apparent distress at this time. Patient and/or rb1 family updated on plan of care and expected duration. Pain level reassessed. Patient is alert, oriented x 3, equal unlabored respirations, skin warm/dry/pink. pt. requested pain medication, provider notified. Received order for Morphine 4 mg IVP x once. Vital Signs: 11:07 BP 134 / 101; Pulse 74; Resp 18; Temp 97.3(TE); Pulse Ox 98% on R/A; Weight 58.97 kg; Height 6 ft. 0 in. (182.88 cm); Pain 0/10; 12:00 BP 130 / 84; Pulse 62; Resp 18; Pulse Ox 100% on R/A; rb1 13:07 BP 153 / 100; Pulse 60; Resp 17; Pulse Ox 98% on R/A; rb1 11:07 Body Mass Index 17.63 (58.97 kg, 182.88 cm) ED Course: 10:55 Patient arrived in ED. sb2 10:55 Eric Yao MD is Private Physician. sb2 10:57 Regino Ridley PA is PHCP. cp 10:57 Akin Rollins MD is Attending Physician. cp 10:58 Abigail Castrejon, RN is Primary Nurse. rb1 11:00 Pulse ox on. NIBP on. rb1 11:04 Triage completed. hj 11:07 Arm band placed on right wrist. hj 11:09 Patient has correct armband on for positive identification. Bed in low position. Call hj light in reach. Side rails up X 1. 11:25 Inserted saline lock: 20 gauge in right antecubital area, using aseptic technique. IV ag inserted by EMS student Mohini Ward Supervised by Brittney. 11:37 XRAY Hand LEFT 3 View In Process Unspecified. EDMS 12:33 EKG done, by household appliances service technician. reviewed by Regino JEAN. at1 12:35 Derik Han DO is Hospitalizing Provider. cp 12:53 XRAY Chest (1 view) In Process Unspecified. EDMS 13:21 Inserted saline lock: 20 gauge in right forearm, using aseptic technique. Blood ss collected. 13:29 No provider procedures requiring assistance completed. Patient admitted, IV remains in rb1 place. Administered Medications: 11:05 Drug: Tetanus-Diphtheria Toxoid Adult 0.5 ml {Frame Bander: [employer]. Exp: rb1 07/24/2020. Lot #: [id number]. } Route: IM; Site: right deltoid; 11:20 Follow up: Response: No adverse reaction rb1 11:20 Drug: Zofran 4 mg Route: IVP; Site: right antecubital; rb1 11:35 Follow up: Response: No adverse reaction; Nausea is decreased rb1 11:20 Drug: morphine 4 mg Route: IVP; Site: right antecubital; rb1 11:35 Follow up: Response: No adverse reaction; Pain is decreased rb1 12:16 Drug: Ancef 1 grams Route: IVPB; Site: right antecubital; rb1 13:24 Drug: morphine 4 mg Route: IVP; Site: right forearm; rb1 13:25 Follow up: Response: No adverse reaction; Medication administered at discharge. rb1 14:12 Not Given (provider changed order): Marcaine (0.5 %) 5 ml 10 ml Infiltration once rb1 14:13 Not Given (provider canceled): Lidocaine (1 %) 5 ml 5 ml Infiltration once; to bedside rb1 Outcome: 12:36 Decision to Hospitalize by Provider. cp 13:29 Patient left the ED. rb1 13:29 Admitted to OR accompanied by nurse, via wheelchair, with chart, Report called to rb1 Report given to BRIANA Garcia 13:29 Condition: stable 13:29 Instructed on the need for admit. Signatures: Dispatcher [employer] EDVT Izzy Flores, RN RN ss Irina Person, integrated circuits inspector EKG Tat1 Brittney White Henry RN RN Regino Quarles, Abigail Hunter cp, RN RN rb1 Sultana Christy sb2
--- NOTE | 2018-06-25 12:44 | EKG ---
Test Date: 2018-06-25 Test Time: 12:14:29 Home School Teacher: CRAIG MEASUREMENT RESULTS: Intervals: Rate: 62 AR: 166 QRSD: 80 QT: 428 QTc: 434 [place]: P: 69 AR: 166 QRS: 81 T: 62 INTERPRETIVE STATEMENTS: Normal sinus rhythm Normal ECG Compared to ECG 04/28/2018 10:42:50 Sinus tachycardia no longer present Right-axis deviation no longer present Myocardial infarct finding no longer present Electronically Signed On 06-25-18 12:43:58 CDT by Shakeel Calzada
[2018-06-25] MEDS ORDERED: ALBUTEROL 2.5 MG/3 ML NEB SOL NEB PRN (12:45)
[2018-06-25] MEDS ORDERED: ACETAMINOPHEN 500 MG TAB PO PRN (12:45)
[2018-06-25] MEDS ORDERED: ONDANSETRON 4 MG/2 ML VIAL IV PRN (12:45)
[2018-06-25] MEDS ORDERED: MORPHINE 2 MG/ML SYR IV PRN (12:45)
[2018-06-25] MEDS ORDERED: HYDROCODONE/APAP 7.5/325 MG TAB PO PRN (12:45)
[2018-06-25] MEDS ORDERED: LORazepam 2 MG/ML VIAL IV PRN (12:45)
[2018-06-25] MEDS ORDERED: IPRATROPIUM BROM 0.5MG/2.5ML NEB PRN (12:45)
[2018-06-25] MEDS ORDERED: TRAMADOL HCL 50 MG TAB PO PRN (12:45)
[2018-06-25] MEDS ORDERED: NA CHLORIDE 0.9% 1,000 ML IV SCH (13:00)
--- NOTE | 2018-06-25 13:01 | P.HP ---
Certification for Inpatient Patient admitted to: Inpatient With expected LOS: >2 Midnights Patient will require the following post-hospital care: None Practitioner: I am a practitioner with admitting privileges, knowledge of patient current condition, hospital course, and medical plan of care. Services: Services provided to patient in accordance with Admission requirements found in Title 42 Section 412.3 of the Code of Federal Regulations Patient History Date of Service: 06/25/18 Primary Care Provider: none(Has seen Dr. Yao but does not consider him his PCP ) Reason for admission: Work related injury History of Present Illness: 53-year-old male presented to the emergency room after work related injury. 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 He apparently got his finger caught within this brain. He suffered a major laceration and fracture to the left 2nd digit. Patient came to the ER for evaluation. Patient denied any headaches, dizziness, chest pain or shortness of breath. In the ER patient found to have comminuted fracture of the distal 2nd metacarpal as well is the proximal phalanx of the 2nd finger. Lab pending at this time. Laceration noted. I was asked to admit the patient. Hand surgery has been consulted. When I saw the patient in the ER, pain appeared to be controlled. Patient reports a history of tobacco and alcohol abuse. Denies any major medical issues Allergies NKDA Allergy (Uncoded 03/22/14 20:01) Unknown No Known Allergies Allergy (Uncoded 03/22/14 20:01) Unknown Home medications list reviewed: Yes Home Medications: Cyanocobalamin (Vitamin B-12) [Vitamin B-12] 1,000 mcg PO DAILY #30 tablet.er Folic Acid 1 mg PO DAILY #30 tablet 03/26/14 Multivitamin [Multivitamins] 1 each PO DAILY #30 capsule 03/26/14 predniSONE [Prednisone*] 20 mg PO DAILY #0 tab 03/26/14 - Past Medical/Surgical History Diabetic: No -: Tobacco abuse -: Alcohol abuse -: Left hand surgery Psychosocial/ Personal History: Patient is single. Currently . Has 1 child. He works as a security alarm technician - Family History Father -: Heart disease - Social History Smoking Status: Heavy Tobacco smoker (>10 cigarettes/day) Counseled patient to stop smoking for: less than 10 minutes Smoking therapy provided: Yes Patient receptive to therapy: Yes Alcohol use: Yes CD- Drugs: No Caffeine use: Yes Place of Residence: Home Review of Systems General: As per HPI Eyes: Unremarkable ENT: Unremarkable Respiratory: Unremarkable Cardiovascular: Unremarkable Gastrointestinal: Unremarkable Genitourinary: Unremarkable Musculoskeletal: As per HPI Integumentary: As per HPI Neurological: Unremarkable Lymphatics: Unremarkable Physical Examination - Physical Exam General: Alert, In no apparent distress, Oriented x3, Cooperative HEENT: Atraumatic, Normocephalic, PERRLA, Mucous membr. moist/pink Neck: Supple, No Thyromegaly Respiratory: Clear to auscultation bilaterally, Normal air movement Cardiovascular: Normal pulses, Regular rate/rhythm Gastrointestinal: Normal bowel sounds, Soft and benign, Non-distended, No tenderness, No masses, No rebound, No guarding Musculoskeletal: No warmth Integumentary: Other (Severe laceration of left 2nd digit. Fracture identified.) Neurological: Normal speech, Normal strength at 5/5 x4 extr, Normal tone, Normal affect Assessment and Plan - Problems (Diagnosis) (1) Open fracture of second metacarpal bone of left hand Current Visit: Yes Status: Acute Plan: Open comminuted fracture of 2nd metacarpal and proximal phalanx. Hand surgery consulted. Will keep NPO. Await recommendations anticipate surgery today. Qualifiers: Encounter type: initial encounter Fracture alignment: displaced (2) Phalanx, hand fracture, open Current Visit: Yes Status: Acute Plan: Continue as above Qualifiers: Encounter type: initial encounter Qualified Code(s): S62.609B - Fracture of unspecified phalanx of unspecified finger, initial encounter for open fracture (3) Tobacco abuse Current Visit: Yes Status: Chronic Plan: Will provide nicotine patch. Tobacco cessation addressed. Patient already trying to quit. (4) Alcohol abuse Current Visit: Yes Status: Chronic Plan: Will monitor for alcohol withdrawal. Patient drinks about 6 beers per day. Will provide Ativan as needed. Discharge Plan: Home Plan to discharge in: Greater than 2 days - Advance Directives Does patient have a Living Will: No Does patient have a Durable POA for Healthcare: No - Code Status/Comfort Care Code Status Assessed: Yes Time Spent Managing Pts Care (In Minutes): 55
--- NOTE | 2018-06-25 13:02 | RAD REPORT ---
EXAM DESCRIPTION: RAD - Chest Single View - 06/25/2018 12:53 pm CLINICAL HISTORY: pre-op Chest pain. COMPARISON: Chest Single View dated 04/28/2018; Chest Single View dated 04/22/2018 FINDINGS: Portable technique limits examination quality. The lungs are grossly clear. The heart is normal in size. Healing left lateral inferior rib fractures noted. IMPRESSION: No acute intrathoracic process suspected.
[2018-06-25 13:35] LABS: Absolute Lymphocytes (CBC) 0.9 K/uL (0.7-4.9); Absolute Monocytes 0.4 K/uL (0.1-1.3); Absolute Neutrophil 6.4 K/uL (1.8-8.0); Eosinophils % 1.1 % (0-4.4); Hematocrit 45.9 % (39.6-49.0); Lymphocytes % 11.9 % (15.3-44.8); MCH 34.5 pg (27.0-35.0); MCV 102.3 fL (80-100); MPV 8.5 fL (7.6-11.3); Monocytes % 5.2 % (3.3-12.3); RBC Red Blood Cell Count 4.48 M/uL (4.33-5.43)
[2018-06-25 13:38] LABS: Protime INR 0.95
[2018-06-25] MEDS ORDERED: Ringers Lactate 1,000 ML IV ONE (13:46)
[2018-06-25 13:48] LABS: BUN Blood Urea Nitrogen 5 mg/dL (7-18); Bicarbonate 28 mmol/L (21-32); Glucose Level 93 mg/dL (74-106); Potassium 4.1 mmol/L (3.5-5.1); Sodium Level 137 mmol/L (136-145)
[2018-06-25] MEDS ORDERED: MIDAZOLAM HCL 2 MG/2 ML INJ ONE (14:15)
[2018-06-25] MEDS ORDERED: PROPOFOL 200 MG/20 ML VIAL IV ONE (14:15)
[2018-06-25 15:34] VITALS: O2SAT 100
[2018-06-25] MEDS: MEPERIDINE HCL 50 MG/ML AMP ONE ×2 (15:37→15:46)
--- NOTE | 2018-06-25 15:42 | RAD REPORT ---
EXAM DESCRIPTION: RAD - Hand Left 2 View - 06/25/2018 3:30 pm CLINICAL HISTORY: Fluoroscopic assisted fracture repair COMPARISON: June 25 FINDINGS: Approximately 14 portable C-arm images were submitted from a fluoroscopic assisted fractur e fixation procedure. Fluoro time was 0.2 minutes. Imaging shows stepwise placement of fixation hardware. No suspicious or unexpected finding.
[2018-06-25] MEDS ORDERED: KETOROLAC 30 MG/ML INJ ONE (15:46)
[2018-06-25] MEDS: FENTANYL CITR 100 MCG/2 ML ONE ×2 (15:50→16:02)
[2018-06-25] MEDS ORDERED: FENTANYL CITR 100 MCG/2 ML ONE (15:54)
--- NOTE | 2018-06-25 16:26 | P.DS ---
Admission Date: 06/25/18 Discharge Date: 06/25/18 Primary Care Provider: none(Has seen Dr. Yao but does not consider him his PCP ) Disposition: ROUTINE DISCHARGE Discharge Condition: GOOD Reason for Admission: Work related injury Consultations: Plastics-Dr. Garrido Procedures: Surgery-ORIF Left hand, 2nd digit - Problems (1) Open fracture of second metacarpal bone of left hand Current Visit: Yes Status: Acute Qualifiers: Encounter type: initial encounter Fracture alignment: displaced (2) Phalanx, hand fracture, open Current Visit: Yes Status: Acute Qualifiers: Encounter type: initial encounter Qualified Code(s): S62.609B - Fracture of unspecified phalanx of unspecified finger, initial encounter for open fracture (3) Tobacco abuse Current Visit: Yes Status: Chronic (4) Alcohol abuse Current Visit: Yes Status: Chronic Brief History of Present Illness: 53-year-old male presented to the emergency room after work related injury. 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 He apparently got his finger caught within this brain. He suffered a major laceration and fracture to the left 2nd digit. Patient came to the ER for evaluation. Patient denied any headaches, dizziness, chest pain or shortness of breath. In the ER patient found to have comminuted fracture of the distal 2nd metacarpal as well is the proximal phalanx of the 2nd finger. Lab pending at this time. Laceration noted. I was asked to admit the patient. Hand surgery has been consulted. When I saw the patient in the ER, pain appeared to be controlled. Patient reports a history of tobacco and alcohol abuse. Denies any major medical issues Hospital Course: The patient was taken to the operating room to address his work related injury. Patient had ORIF of the 2nd digit. Patient tolerated procedure well. No complications were noted. Plastic surgery recommended discharged after the procedure. At discharge she will continue with Bactrim DS 1 pill twice daily for at least 10 days and Tylenol #3 one pill three times a day as needed for pain. Both medication provided by Surgery. Patient will follow up with plastic surgery on Sunday to follow up this hospitalization. Tobacco and alcohol cessation was addressed. This can be further monitored as an outpatient. Vital Signs/Physical Exam: Temp Pulse Resp BP Pulse Ox 97.6 F 54 16 147/86 H 06/25/18 15:54 06/25/18 15:59 06/25/18 15:59 06/25/18 15:54 General: Alert, In no apparent distress, Oriented x3, Cooperative HEENT: Atraumatic Neck: Supple Respiratory: Clear to auscultation bilaterally, Normal air movement Cardiovascular: Normal pulses, Regular rate/rhythm Gastrointestinal: Normal bowel sounds, Soft and benign, Non-distended, No tenderness, No masses, No rebound, No guarding Musculoskeletal: No tenderness, No warmth Neurological: Normal speech, Normal strength at 5/5 x4 extr, Normal tone, Normal affect Laboratory Data at Discharge: WBC 7.9 K/uL (4.3-10.9) 06/25/18 13:20 Hgb 15.5 g/dL (13.6-17.9) 06/25/18 13:20 Hct 45.9 % (39.6-49.0) 06/25/18 13:20 Plt Count 208 K/uL (152-406) 06/25/18 13:20 PT 11.2 SECONDS (9.5-12.5) 06/25/18 13:20 INR 0.95 06/25/18 13:20 APTT 32.0 SECONDS (24.3-36.9) 06/25/18 13:20 Sodium 137 mmol/L (136-145) 06/25/18 13:20 Potassium 4.1 mmol/L (3.5-5.1) 06/25/18 13:20 BUN 5 mg/dL (7-18) L 06/25/18 13:20 Creatinine 0.70 mg/dL (0.55-1.3) 06/25/18 13:20 Glucose 93 mg/dL (74-106) 06/25/18 13:20 Home Medications: Cyanocobalamin (Vitamin B-12) [Vitamin B-12] 1,000 mcg PO DAILY #30 tablet.er Folic Acid 1 mg PO DAILY #30 tablet 03/26/14 Multivitamin [Multivitamins] 1 each PO DAILY #30 capsule 03/26/14 Patient Discharge Instructions: 1. Patient will need a follow up his PCP in 1 week to follow up this hospitalization. 2. Patient presented with a work related injury to the left hand. Patient had comminuted fracture of the 2nd digit. Patient seen by plastic surgery. Surgery was performed. Open reduction and internal fixation was done. Patient tolerated procedure well. Patient will be discharged and follow up with surgery on Sunday. A prescription for pain medication-Tylenol #3 one pill three times a day as needed for pain and Bactrim DS 1 pill twice daily for 10 days will be provided by surgery. Work restriction will be provided by plastic surgery. 3. Tobacco and alcohol cessation education will be provided. This can be further monitored and addressed as an outpatient. Diet: Regular Activity: Work restrictions will be provided by plastic surgery. Time spent managing pt's care (in minutes): 55
[2018-06-25] MEDS ORDERED: CEFAZOLIN/SWI 1gm 1 GM/10 ML SYR IVP SCH (17:00)
[2018-06-25 18:25] VITALS: BP 144/87; TEMP 97.3
[2018-06-26] MEDS ORDERED: CEFTRIAXONE 1 GM/NS 50 ML 1 GM/50 ML BAG IV SCH (09:00)
[2018-06-26] MEDS ORDERED: THIAMINE 200 MG/2 ML INJ IVP SCH (09:00)
[2018-06-26] MEDS ORDERED: ENOXAPARIN 40 MG/0.4 ML SQ SCH (09:00)
[2018-06-26] MEDS ORDERED: NICOTINE 21 MG/PAT TD SCH (09:00)
[2018-06-26] MEDS ORDERED: FOLIC ACID 1 MG in NA CHLORIDE 0.9% 50 ML IV SCH (09:00)
--- NOTE | 2018-06-26 09:36 | OP ---
Surgeon: Monster Garrido MD Aviation Electrical Technician: Raza. Preoperative Diagnosis: Open fracture of the left index finger metacarpal. Postoperative Diagnosis: Open fracture of the left index finger metacarpal with partial laceration of the extensor tendon. Procedure Performed: Debridement of skin and subcutaneous tissue, simple closure of 8 cm wound, open reduction and internal fixation of metacarpal fracture, extensor tendon repair, splint. Anesthesia: General. Procedure In Detail: After satisfactory induction of general anesthesia, the left hand was prepped with Betadine scrub, Betadine paint, dry sterile drapes applied in the usual manner. The arm was elevated and exsanguinated with Esmarch. Tourniquet was inflated to 250 mmHg. Hand was placed on the [place] table. A scalpel was used to make proximal extension of the laceration over the metacarpal head. Skin and subcutaneous tissue were debrided. Dissection proceeded down to the laceration of extensor mechanism which included the sagittal band and also the extensor tendon distal to that on the ulnar side longitudinally. The tendon was then retracted radially and dissection proceeded down to the fracture. The joint was kept closed. The fracture could be realigned by distal traction and compression to reduce the fracture fragment. K-wires 0.035 were placed in proximal distal with MCP of 90 degrees. C-arm revealed excellent reduction. There are still portions of the fracture of the metacarpal head which could not be reduced, and there was a small dorsal fragment. The patient then had the extensor mechanism repaired with running clear 4-0 Prolene over the sagittal band and over the longitudinal laceration of the extensor tendon. After the wound was jet lavaged was irrigated with 3 L of Betadine solution. Tourniquet released. Electrocautery used for hemostasis. The K-wires were brought out of the skin then the wound was closed with 4-0 Prolene vertical mattress and simple sutures . Dressed with Xeroform, 2 inch Sagrario, Kerlix, and fiberglass splint. The patient tolerated the procedure well and returned to recovery. PROSPER/SATISH Voice ID: [id number] Report ID: [id number] ULCINA
== END 2018-06-25 17:38 | disposition home or self-care (01) | DRG 513 ==
LOC: ER 10:51 → ERHOLD 12:45 → UNDOADMIN 12:45 → OR 13:41 → 2ND 13:42
PROVIDERS: ADMIT Family Medicine; ATTEND Family Medicine
PROC: 0LQ80ZZ Repair Left Hand Tendon, Open Approach (ICD-10-PCS; 2018-06-25)
PROC: 0PSQ04Z Reposition Left Metacarpal with Internal Fixation Device, Open Approach (ICD-10-PCS; principal; 2018-06-25 14:00)
DX: S62.391B Other fracture of second metacarpal bone, left hand, initial encounter for open fracture (principal); S66.321A Laceration of extensor muscle, fascia and tendon of left index finger at wrist and hand level, initial encounter; F10.10 Alcohol abuse, uncomplicated; W23.0XXA Caught, crushed, jammed, or pinched between moving objects, initial encounter; Y93.89 Activity, other specified; Y92.015 Private garage of single-family (private) house as the place of occurrence of the external cause; Y99.0 Civilian activity done for income or pay; F17.210 Nicotine dependence, cigarettes, uncomplicated; Z23 Encounter for immunization
CPT/HCPCS: 36415; 71045; 80048; 85025; 85610; 85730; 88304; 90714; 93005; 99285; J0690; J2175; J2250; J2405; J3010

== ENCOUNTER 2019-10-13 09:16 | Observation (INO) | payer SELFPAY ==
[2019-10-13 10:34] LABS: Basophils % 1.3 % (0-1.3); Hematocrit 33.8 % (39.6-49.0); Lymphocytes % 19.8 % (15.3-44.8); MPV 9.1 fL (7.6-11.3)
[2019-10-13 10:51] LABS: ALT/SGPT 22 U/L (12-78); AST/SGOT 32 U/L (15-37); Alkaline Phosphatase 94 U/L (45-117); BUN Blood Urea Nitrogen 5 mg/dL (7-18); Bicarbonate 24 mmol/L (21-32); Bilirubin Direct 0.4 mg/dL (0-0.2); Bilirubin Total 1.2 mg/dL (0.2-1.0); Glucose Level 85 mg/dL (74-106); Magnesium 2.1 mg/dL (1.8-2.4); NT PRO-BNP 365 pg/mL (<125); Potassium 3.8 mmol/L (3.5-5.1); Sodium Level 131 mmol/L (136-145); Troponin (Emerg Dept Use Only) 0.08 ng/mL (0.0-0.045)
--- NOTE | 2019-10-13 10:56 | RAD REPORT ---
EXAM DESCRIPTION: RAD - Chest Single View - 10/13/2019 10:43 am CLINICAL HISTORY: CHEST PAIN Chest pain. COMPARISON: Chest Single View dated 06/25/2018; Chest Single View dated 04/28/2018; Chest Single View dated 04/22/2018 FINDINGS: Portable technique limits examination quality. The lungs are grossly clear. The heart is normal in size. Several right inferolateral rib fractures a re present, subacute in appearance.
--- NOTE | 2019-10-13 11:37 | RAD REPORT ---
EXAM DESCRIPTION: CT - Chest For Pe Angio - 10/13/2019 11:24 am CLINICAL HISTORY: Chest pain. CHEST PAIN COMPARISON: No comparisons TECHNIQUE: CT angiogram of the pulmonary arteries was performed with MIP. All CT scans are performed using dose optimization technique as appropriate and may include automated exposure control or mA/KV adjustment according to patient size. FINDINGS: No evidence of pulmonary thromboembolism. No acute aortic finding demonstrated. Mild COPD is present throughout the lungs. No focal infiltrate. No significant pericardial or pleural fluid. Mildly displaced fracture of the right lateral ninth rib is seen, appearing acute. IMPRESSION: No evidence of pulmonary thromboembolism. Relatively recent right lateral ninth rib fracture without pneumothorax.
[2019-10-13] MEDS ORDERED: METOPROLOL TAR 50 MG TAB ONE (11:49)
[2019-10-13] MEDS ORDERED: ENOXAPARIN 60 MG/0.6 ML SQ ONE (11:49)
[2019-10-13] MEDS ORDERED: ASPIRIN 81 MG CHEWABLE TABLET ONE (11:49)
--- NOTE | 2019-10-13 12:07 | RAD REPORT ---
EXAM DESCRIPTION: US - Extremity Venous Uni Ltd - 10/13/2019 11:53 am CLINICAL HISTORY: Pain;Swelling Leg swelling and edema. COMPARISON: EXT VENOUS W COMPRESSION PAPITO dated 03/22/2014 FINDINGS: Left lower extremity venous system was interrogated with Doppler technique. Normal flow, c ompressibility and augmentation was noted. There is no DVT present. IMPRESSION: No evidence of left lower extremity deep venous thrombosis.
--- NOTE | 2019-10-13 12:13 | EDPHYS ---
Physician Documentation [facility] Name: Uche Lo Age: 54 yrs Sex: Male : 1965 Arrival Date: 10/13/2019 Time: 09:19 Bed 19 Private MD: None, None ED Physician Akin Rollins HPI: 10/13 10:59 This 54 yrs old Male presents to ER via Ambulatory with complaints of Chest pm1 Pain, Left Leg Pain. 10:59 The patient or guardian reports chest pain that is located primarily in the mid-sternal pm1 area. Onset: yesterday. The pain does not radiate. Associated signs and symptoms: Pertinent positives: diaphoresis, lower extremity pain, lower extremity swelling, nausea, near-syncope, shortness of breath. The chest pain is described as a pressure. Duration: The patient or guardian reports multiple episodes, that have now resolved. Modifying factors: The symptoms are alleviated by rest, the symptoms are aggravated by nothing. Severity of pain: in the emergency department the pain has resolved is a 0 / 10. The patient has not experienced similar symptoms in the past. The patient has not recently seen a physician, and does not have an established primary care provider. Patient with onset of chest pain yesterday that lasted for about two hours. Midsternal pressure with diaphoresis, nausea and shortness of breath. Symptoms resolved then this AM between 0400 and 0500 patient with the same symptoms of chest pain, shortness of breath, nausea and diaphoresis of a lesser degree that lasted between 1.5 to 2 hours. Patient has had swelling to left lower extremity for about 6 weeks with bruising present to thigh for 1 week. Historical: - Allergies: 09:48 No Known Allergies; ss - Home Meds: 09:48 None [Active]; ss - PMHx: 09:48 None; ss - PSHx: 09:48 L hand; ss - Immunization history:: Adult Immunizations unknown. - Social history:: Smoking status: Patient uses tobacco products, 1.5 ppd, Smoking status: Patient uses tobacco products, Patient uses alcohol, 6-9 beers/ day. - Ebola Screening: : Patient denies exposure to infectious person Patient denies travel to an Ebola-affected area in the 21 days before illness onset. ROS: 10:59 Constitutional: Negative for fever, chills, and weight loss, Eyes: Negative for injury, pm1 pain, redness, and discharge, ENT: Negative for injury, pain, and discharge, Neck: Negative for injury, pain, and swelling. 10:59 Abdomen/GI: Negative for abdominal pain, nausea, vomiting, diarrhea, and constipation, Back: Negative for injury and pain, MS/Extremity: Negative for injury and deformity, Skin: Negative for injury, rash, and discoloration, Neuro: Negative for headache, weakness, numbness, tingling, and seizure. 10:59 Cardiovascular: Positive for chest pain, Negative for palpitations. 10:59 Respiratory: Positive for shortness of breath, Negative for cough, wheezing. Exam: 10:59 Constitutional: This is a well developed, well nourished patient who is awake, alert, pm1 and in no acute distress. Head/Face: Normocephalic, atraumatic. Neck: Trachea midline, no thyromegaly or masses palpated, and no cervical lymphadenopathy. Supple, full range of motion without nuchal rigidity, or vertebral point tenderness. No Meningismus. Chest/axilla: Normal chest wall appearance and motion. Nontender with no deformity. No lesions are appreciated. Cardiovascular: Regular rate and rhythm with a normal S1 and S2. No gallops, murmurs, or rubs. Normal PMI, no JVD. No pulse deficits. Respiratory: Lungs have equal breath sounds bilaterally, clear to auscultation and percussion. No rales, rhonchi or wheezes noted. No increased work of breathing, no retractions or nasal flaring. Abdomen/GI: Soft, non-tender, with normal bowel sounds. No distension or tympany. No guarding or rebound. No evidence of tenderness throughout. Back: No spinal tenderness. No costovertebral tenderness. Full range of motion. Skin: Warm, dry with normal turgor. Normal color with no rashes, no lesions, and no evidence of cellulitis. MS/ Extremity: Pulses equal, no cyanosis. Neurovascular intact. Full, normal range of motion. 10:59 Neuro: Orientation: is normal, Motor: is normal, moves all fours, Sensation: is normal, no obvious gross deficits. Vital Signs: 09:42 BP 125 / 91; Pulse 92; Resp 18; Temp 98.2(TE); Pulse Ox 100% on R/A; Weight 58.97 kg; ss Height 6 ft. 0 in. (182.88 cm); Pain 0/10; 11:00 BP 113 / 91; Pulse 84; Resp 16; Pulse Ox 100% ; sv 12:18 BP 135 / 98; Pulse 81; Resp 16; Pulse Ox 100% ; sv 13:00 BP 122 / 90; Pulse 65; Resp 16; Pulse Ox 100% ; sv 14:02 BP 132 / 97; Pulse 58; Resp 18; Pulse Ox 99% ; sv 14:59 BP 119 / 73; Pulse 52; Resp 14; Pulse Ox 100% ; sv 16:00 BP 140 / 92; Pulse 54; Resp 12; Pulse Ox 99% ; sv 16:30 BP 122 / 97; Pulse 57; Resp 14; Pulse Ox 100% ; sv 09:42 Body Mass Index 17.63 (58.97 kg, 182.88 cm) ss MDM: 09:55 Patient medically screened. pm1 12:10 Data reviewed: vital signs. Data interpreted: Pulse oximetry: on room air is 100 %. pm1 Interpretation: normal. Counseling: I had a detailed discussion with the patient and/or guardian regarding: the historical points, exam findings, and any diagnostic results supporting the discharge/admit diagnosis, lab results, radiology results, the need for further work-up and treatment in the hospital. 12:27 Physician consultation: Marta Aguilar MD was called at 12:28, was contacted at 12:28, pm1 regarding admission, patient's condition, and will see patient Admit to observation, give Pepcid, and repeat troponin now. 12 09:57 Order name: Basic Metabolic Panel; Complete Time: 10:59 pm1 12 09:57 Order name: CBC with Diff; Complete Time: 11:10 pm1 12 09:57 Order name: LFT's; Complete Time: 10:59 pm1 10/13 09:57 Order name: Magnesium; Complete Time: 10:59 pm1 12 09:57 Order name: NT PRO-BNP; Complete Time: 10:59 pm1 12 09:57 Order name: PT-INR; Complete Time: 11:19 pm1 12 09:57 Order name: Troponin (emerg Dept Use Only); Complete Time: 10:59 pm1 12 09:57 Order name: ETOH Level; Complete Time: 11:23 pm1 10/13 12:25 Order name: Troponin (emerg Dept Use Only); Complete Time: 13:31 pm1 10/13 15:33 Order name: Lipid Profile EDMS 10/13 15:33 Order name: Lipid Profile EDMS 10/13 15:35 Order name: Magnesium EDMS 10/13 15:35 Order name: Troponin I EDMS 10/13 15:35 Order name: Troponin I EDMS 10/13 09:57 Order name: XRAY Chest (1 view); Complete Time: 10:59 pm1 10/13 09:57 Order name: EKG; Complete Time: 09:58 pm1 10/13 09:57 Order name: Cardiac monitoring; Complete Time: 10:00 pm1 10/13 09:57 Order name: EKG - Nurse/Tech; Complete Time: 10:00 pm1 10/13 09:57 Order name: IV Saline Lock; Complete Time: 10:15 pm1 10/13 11:12 Order name: CT Chest For PE Angio; Complete Time: 12:10 pm1 10/13 11:12 Order name: Extremity Venous Uni Ltd US; Complete Time: 12:17 pm1 10/13 12:45 Order name: Diet Heart Healthy; Complete Time: 12:46 sv 10/13 15:34 Order name: CONS Pharmacy Consult EDNV 10/13 15:35 Order name: Echo with Doppler EDMS 10/13 15:35 Order name: EKG Electrocardiogram EDMS 10/13 15:35 Order name: EKG Electrocardiogram EDNV 10/13 09:57 Order name: Labs collected and sent; Complete Time: 10:15 pm1 10/13 09:57 Order name: O2 Per Protocol; Complete Time: 10:01 pm1 10/13 09:57 Order name: O2 Sat Monitoring; Complete Time: 10:01 pm1 Administered Medications: 12:02 Drug: Lovenox 1 mg/kg Route: Sub-Q; Site: right lower abdomen; sv 12:19 Follow up: Response: No adverse reaction sv 12:02 Drug: Aspirin Chewable Tablet 324 mg Route: PO; sv 12:19 Follow up: Response: No adverse reaction sv 12:02 Drug: Lopressor (metoprolol TARTRATE) 50 mg Route: PO; sv 12:19 Follow up: Response: No adverse reaction sv 12:45 Drug: Pepcid 20 mg Route: IVP; Site: left antecubital; sv 13:00 Follow up: Response: No adverse reaction sv Disposition: 16:50 Co-signature as Attending Physician, Akin Rollins MD. rn Disposition: 10/13/19 12:12 Hospitalization ordered by Marta Aguilar for Observation. Preliminary diagnosis is Non-ST elevation (NSTEMI) myocardial infarction. - Bed requested for Telemetry/MedSurg (observation). - Status is Observation. sv - Condition is Stable. - Problem is new. - Symptoms have improved. UTI on Admission? No Signatures: Dispatcher [employer] EDMS Radha Perez RN Sol Castro RN Akin Gutierrez MD MD rn Smirch, Shelby, RN RN ss Marinas, Patrick, BETTY ROUSTABOUT HEAD pm1 Corrections: (The following items were deleted from the chart) 12:29 12:12 Hospitalization Ordered by Marta Aguilar MD for Inpatient Admission. Preliminary pm1 diagnosis is Non-ST elevation (NSTEMI) myocardial infarction. Bed requested for Telemetry/MedSurg (Inpatient). Status is Inpatient Admission. Condition is Stable. Problem is new. Symptoms have improved. UTI on Admission? No. pm1 16:03 12:29 10/13/2019 12:12 Hospitalization Ordered by Marta Aguilar MD for Observation. dw Preliminary diagnosis is Non-ST elevation (NSTEMI) myocardial infarction. Bed requested for Telemetry/MedSurg (observation). Status is Observation. Condition is Stable. Problem is new. Symptoms have improved. UTI on Admission? No. pm1 16:46 16:03 10/13/2019 12:12 Hospitalization Ordered by Marta Aguilar MD for Observation. sv Preliminary diagnosis is Non-ST elevation (NSTEMI) myocardial infarction. Bed requested for Telemetry/MedSurg (observation). Status is Observation. Condition is Stable. Problem is new. Symptoms have improved. UTI on Admission? No. dw
--- NOTE | 2019-10-13 12:13 | ER ---
Nurse's Notes [facility] Name: Uche Lo Age: 54 yrs Sex: Male : 1965 Arrival Date: 10/13/2019 Time: 09:19 Bed 19 Private MD: None, None Diagnosis: Non-ST elevation (NSTEMI) myocardial infarction Presentation: 10/13 09:43 Presenting complaint: Patient states: pain to L ankle x 6 weeks that is now radiating ss towards L groin. Patient denies injury, but noticed that he has a very large bruise to L thigh x 3-4 days. Pt also reports that yesterday he was sitting down watching TV when he had a sudden onset of chest pain, cold sweat and nausea, went to the restroom and then had a syncopal episode. Pt reports that he felt bad for about an hour and afterwards, his L leg was numb/ tingly for 4-5 hours. Transition of care: patient was not received from another setting of care. Onset of symptoms is unknown. Risk Assessment: Do you want to hurt yourself or someone else? Patient reports no desire to harm self or others. Initial Sepsis Screen: Does the patient meet any 2 criteria? HR > 90 bpm. Does the patient have a suspected source of infection? No. Patient's initial sepsis screen is negative. Care prior to arrival: None. 09:43 Method Of Arrival: Ambulatory 09:43 Acuity: KARLA 2 ss Historical: - Allergies: 09:48 No Known Allergies; ss - Home Meds: 09:48 None [Active]; ss - PMHx: 09:48 None; ss - PSHx: 09:48 L hand; ss - Immunization history:: Adult Immunizations unknown. - Social history:: Smoking status: Patient uses tobacco products, 1.5 ppd, Smoking status: Patient uses tobacco products, Patient uses alcohol, 6-9 beers/ day. - Ebola Screening: : Patient denies exposure to infectious person Patient denies travel to an Ebola-affected area in the 21 days before illness onset. Screenin:30 Abuse screen: Denies threats or abuse. Denies injuries from another. Nutritional sv screening: No deficits noted. Tuberculosis screening: No symptoms or risk factors identified. Fall Risk No fall in past 12 months (0 pts). No secondary diagnosis (0 pts). IV access (20 points). Ambulatory Aid- None/Bed Rest/Nurse Assist (0 pts). Gait- Normal/Bed Rest/Wheelchair (0 pts) Mental Status- Oriented to own ability (0 pts). Total Haynes Fall Scale indicates No Risk (0-24 pts). Assessment: 10:30 General: Appears in no apparent distress. uncomfortable, slender, Behavior is calm, sv cooperative, appropriate for age. Pain: Complains of pain in left leg Pain does not radiate. Pain currently is 3 out of 10 on a pain scale. Quality of pain is described as pressure, Pain began 1 day ago. Is intermittent, episodic, Aggravated by increased activity, weight bearing, Also complains of shortness of breath. Neuro: Level of Consciousness is awake, alert, obeys commands, Oriented to person, place, time, situation, Moves all extremities. Speech is normal, Reports a syncopal episode yesterday after he was on the toilet attempting to have a BM and was cleaning himself and the next thing he knows he was on the floor.. Cardiovascular: Heart tones S1 S2 present Capillary refill is > 3 seconds is sluggish in bilateral fingers Clubbing of nail beds is present Patient's skin is warm and dry. Pulses are 2+ in left dorsalis pedis artery are 3+ in right radial artery and left radial artery Chest pain is denied. Cardiovascular: Reports mid sternal chest pain that happened yesterday after he passed out in the bathroom. Respiratory: Reports shortness of breath on exertion Airway is patent Respiratory effort is even, unlabored, Respiratory pattern is regular, symmetrical, Breath sounds are clear bilaterally. Derm: Skin is dry, Skin is normal, Bruising that is bright red, dark purple, yellow, on left hip, lateral aspect of left thigh, left gluteal fold, left hamstring, posterior aspect of left knee, left calf, left inner thigh, medial aspect of left thigh and left upper thigh Reports the bruising started 10 days ago but has been progressively been getting worse and the swelling has increased.. Musculoskeletal: Range of motion: intact in all extremities, Swelling present in left hamstring, posterior aspect of left knee, left calf and left Achilles. 12:00 Reassessment: Patient appears in no apparent distress at this time. No changes from sv previously documented assessment. Patient and/or family updated on plan of care and expected duration. Pain level reassessed. Patient is alert, oriented x 3, equal unlabored respirations, skin warm/dry/pink. 12:45 Reassessment: Patient appears in no apparent distress at this time. No changes from sv previously documented assessment. Patient and/or family updated on plan of care and expected duration. Pain level reassessed. Patient is alert, oriented x 3, equal unlabored respirations, skin warm/dry/pink. 13:20 Reassessment: Patient appears in no apparent distress at this time. No changes from sv previously documented assessment. Patient and/or family updated on plan of care and expected duration. Pain level reassessed. Patient is alert, oriented x 3, equal unlabored respirations, skin warm/dry/pink. 15:00 Reassessment: Patient appears in no apparent distress at this time. No changes from sv previously documented assessment. Patient and/or family updated on plan of care and expected duration. Pain level reassessed. Patient is alert, oriented x 3, equal unlabored respirations, skin warm/dry/pink. 15:25 Reassessment: Called Dr Aguilar to get admission orders, stated he would put them in sv shortly. 16:30 Reassessment: Patient appears in no apparent distress at this time. No changes from sv previously documented assessment. Patient and/or family updated on plan of care and expected duration. Pain level reassessed. Patient is alert, oriented x 3, equal unlabored respirations, skin warm/dry/pink. Vital Signs: 09:42 BP 125 / 91; Pulse 92; Resp 18; Temp 98.2(TE); Pulse Ox 100% on R/A; Weight 58.97 kg; ss Height 6 ft. 0 in. (182.88 cm); Pain 0/10; 11:00 BP 113 / 91; Pulse 84; Resp 16; Pulse Ox 100% ; sv 12:18 BP 135 / 98; Pulse 81; Resp 16; Pulse Ox 100% ; sv 13:00 BP 122 / 90; Pulse 65; Resp 16; Pulse Ox 100% ; sv 14:02 BP 132 / 97; Pulse 58; Resp 18; Pulse Ox 99% ; sv 14:59 BP 119 / 73; Pulse 52; Resp 14; Pulse Ox 100% ; sv 16:00 BP 140 / 92; Pulse 54; Resp 12; Pulse Ox 99% ; sv 16:30 BP 122 / 97; Pulse 57; Resp 14; Pulse Ox 100% ; sv 09:42 Body Mass Index 17.63 (58.97 kg, 182.88 cm) ED Course: 09:19 Patient arrived in ED. ag5 09:19 None, None is Private Physician. ag5 09:42 Arm band placed on right wrist. ss 09:47 Triage completed. ss 09:50 Cayden Ornelas NP is PHCP. pm1 09:50 Akin Rollins MD is Attending Physician. pm1 09:52 Radha Perez RN is Primary Nurse. sv 09:57 EKG done, by ED staff, reviewed by Cayden Ornelas NP. dh3 10:10 Initial lab(s) drawn, by ne, sent to lab. Inserted saline lock: 20 gauge in left dh3 antecubital area, using aseptic technique. Blood collected. 10:28 X-ray(s) taken. sv 10:30 Patient has correct armband on for positive identification. Placed in gown. Bed in low sv position. Call light in reach. fitness technician on. Pulse ox on. NIBP on. Door closed. Warm blanket given. Head of bed elevated. 10:30 Patient maintains SpO2 saturation greater than 95% on room air. sv 10:43 XRAY Chest (1 view) In Process Unspecified. EDMS 11:22 CT completed. Patient tolerated procedure well. Patient moved to CT via stretcher. Patient moved back from CT. 11:25 CT Chest For PE Angio In Process Unspecified. EDMS 11:37 Extremity Venous Uni Ltd US In Process Unspecified. EDMS 11:56 Patient moved back from ultrasound. sv 12:11 Marta Aguilar MD is Hospitalizing Provider. pm1 14:00 Awaiting bed assignment. sv 16:30 No provider procedures requiring assistance completed. Patient admitted, IV remains in sv place. intact. Administered Medications: 12:02 Drug: Lovenox 1 mg/kg Route: Sub-Q; Site: right lower abdomen; sv 12:19 Follow up: Response: No adverse reaction sv 12:02 Drug: Aspirin Chewable Tablet 324 mg Route: PO; sv 12:19 Follow up: Response: No adverse reaction sv 12:02 Drug: Lopressor (metoprolol TARTRATE) 50 mg Route: PO; sv 12:19 Follow up: Response: No adverse reaction sv 12:45 Drug: Pepcid 20 mg Route: IVP; Site: left antecubital; sv 13:00 Follow up: Response: No adverse reaction sv Outcome: 12:12 Decision to Hospitalize by Provider. pm1 16:30 Admitted to Tele accompanied by tech, via wheelchair, room 420, with chart, Report sv called to Jody WARREN 16:30 Condition: stable 16:30 Instructed on the need for admit. 16:46 Patient left the ED. sv Signatures: Dispatcher [employer] Radha Wilkerson RN RN sv Smirch, Shelby, RN RN ss Warren, Shannon sw Marinas, Patrick, NP [employer] pm1 Tanya Wise 3 Christi Hu [facility]
[2019-10-13] MEDS ORDERED: FAMOTIDINE 20 MG/2 ML VIAL IV ONE (12:37)
--- NOTE | 2019-10-13 13:00 | EKG ---
Test Date: 2019-10-13 Test Time: 09:57:06 Desulphuring Operator: TAYLOR MEASUREMENT RESULTS: Intervals: Rate: 89 MI: 154 QRSD: 80 QT: 360 QTc: 438 [place]: P: 81 MI: 154 QRS: 81 T: 42 INTERPRETIVE STATEMENTS: Normal sinus rhythm Normal ECG Compared to ECG 06/25/2018 12:14:29 No significant changes Electronically Signed On 10-13-19 12:59:58 GUN FERTILIZER by Bentley Dunne
[2019-10-13] MEDS ORDERED: MORPHINE 2 MG/ML SYR IV PRN (15:25)
[2019-10-13] MEDS ORDERED: ONDANSETRON 4 MG/2 ML VIAL IV PRN ×2 (15:25→15:29)
[2019-10-13] MEDS ORDERED: HYDRALAZINE HCL 20 MG/ML VIAL IV PRN (15:29)
[2019-10-13] MEDS ORDERED: ALBUTEROL 2.5 MG/3 ML NEB SOL NEB PRN (15:29)
[2019-10-13] MEDS ORDERED: LORazepam 2 MG/ML VIAL IV PRN (15:34)
[2019-10-13] MEDS: NITROGLYCERIN 0.2 MG/HR (5 MG) PATCH TD SCH (17:00)
[2019-10-13 17:27] VITALS: BMI 16.0
[2019-10-13] MEDS: Ringers Lactate 1,000 ML IV SCH ×2 (17:33→23:38)
[2019-10-13] MEDS: HEPARIN 5000 UNIT/ML 1 ML VIAL SQ SCH (17:34)
[2019-10-13 19:40] LABS: Magnesium 2.1 mg/dL (1.8-2.4); Troponin I 0.06 ng/mL (0.0-0.045)
[2019-10-13] MEDS: NAPROXEN 250 MG TAB PO SCH (21:05)
[2019-10-13] MEDS: FAMOTIDINE 20 MG TAB PO SCH (21:05)
[2019-10-13 21:53] LABS: Urine Appearance CLEAR; Urine Bilirubin NEGATIVE (NEG); Urine Blood 2+ (NEG); Urine Color DK YELLOW; Urine Glucose NEGATIVE (NEG); Urine Protein NEGATIVE (NEG); Urine Specific Gravity >=1.030 (1.005-1.030); Urine Urobilinogen 0.2 mg/dL (0.2-1.0)
[2019-10-13 22:57] LABS: Urine Bacteria <20 /HPF (NONE SEEN); Urine Culture Reflex Order REFLEXED; Urine Urothelial Cells <5 /HPF (NONE SEEN)
--- NOTE | 2019-10-14 02:51 | HP ---
Date of Admission: 10/13/2019 Presenting Complaint: Shortness of breath and chest pain. History Of Present Illness: Mr. Uche Lo is a 54-year-old male with history of heavy alc ohol use, no other past medical history, who presented for substernal chest pain, started over 24 delia rs ago. Pain onset was when patient woke up yesterday morning. It was located on the right chest, n onradiating. Patient's pain lasted for a few minutes and then resolved. Patient states he continued to drink. He denies any cough or shortness of breath. He states he has some nausea and some diapho resis. Pain again recurred this morning. Patient presented to the ED. He admitted to heavy tobacco use, but no family history of CAD. He has not had similar pain in the past before. Patient denies any falls. Patient is also complaining of a new bruise over his left thigh. He states he had a fall 2 months ago and had some rib fractures, but he claims he has not fallen since then. Past Medical History: Significant for chronic alcohol use, chronic tobacco use, history of recurrent falls with multiple small joint fractures in the past. Past Surgical History: Knee surgery, plates to left digit, history of rib fractures in the past. Allergies: NO KNOWN DRUG ALLERGY. Home Medications: None. Social History: Patient lives alone. He is gainfully employed. He admits to 1 pack per day tobacco use since over 20 years. He admits to 8 to 10 beers, daily use. He denies any illicit drug use. H e denies any hospitalization for alcohol related withdrawal in the past. Family History: Patient denies any history of coronary artery disease or cancer. Review of Systems: All systems reviewed x14 were negative except as mentioned above. Physical Examination: Current Vital Signs: Blood pressure in the ED of 125/91; respiratory rate of 18; pulse of 90, down t o 74; O2 saturation 100% on room air. General: Average built, middle-aged male, calm, not in any distress. HEENT: Head is atraumatic, normocephalic. Slight icterus. Moist oral mucosa. Neck: No JVD. No carotid bruit. Respiratory: Good air entry. No crepitation. Cardiovascular: S1, S2. Rate and rhythm regular. Notable tenderness from the right sternal border extending to 4 cm lateral on the lower rib margin area. GI/Abdomen: Full, soft, nontender. No epigastric tenderness. Extremities: No pedal edema. No calf tenderness. Extensive fading bruises over the posterior left lower extremity. Neuro: Patient is alert, oriented, conversant. No tremors. Laboratory Data: EKG shows normal sinus rhythm, no ST-segment changes. WBC 5, hemoglobin 11.7, plat elet 189. Sodium 131, potassium 3.8, BUN 5, creatinine 0.7. AST and alkaline phosphatase normal. R apid troponin 0.08 with repeat 2 hours later of unchanged. ProBNP of 365, albumin 3.0. Serum alcoho l level 5. CTA shows no PE, but evidence of mildly displaced right lateral 9th rib fracture appearin g acute. Lower extremity DVT ultrasound shows no evidence of left lower extremity DVT. Impression: 1.Right rib fracture. 2.Atypical chest pain, likely related to right rib fracture. 3.Chronic alcohol abuse history. 4.History of tobacco use. Plan: We will admit patient to observation given mildly elevated troponin, which may be patient's ba seline. We will continue to monitor serial set of cardiac enzymes. We will do gentle IV hydration. We will obtain magnesium level and correct if low. We will do Ativan protocol for withdrawal and mo nitor. We will place nitroglycerin patch, though less likely going to improve intermittent chest jack n, although patient is chest pain free now. We will start patient on Naprosyn for pain control. If troponin continues to remain stable, then we will plan for discharge in the morning. If worsening tr oponin, then we will consult Cardiology or consider a stress test. Subcutaneous heparin for DVT prophylaxis. Total time spent in review of record and discussion was gr eater than 55 minutes. EO/MODL Voice ID: [id number]
[2019-10-14 04:48] LABS: Absolute Lymphocytes (CBC) 1.5 K/uL (0.7-4.9); Basophils % 1.2 % (0-1.3); Hematocrit 26.2 % (39.6-49.0); Lymphocytes % 38.9 % (15.3-44.8); MPV 9.7 fL (7.6-11.3); RBC Red Blood Cell Count 2.62 M/uL (4.33-5.43)
[2019-10-14 04:57] LABS: Troponin I 0.05 ng/mL (0.0-0.045)
[2019-10-14] MEDS ORDERED: FOLIC ACID 1 MG TABLET PO SCH (09:00)
[2019-10-14] MEDS ORDERED: NICOTINE 21 MG/PAT TD SCH (09:00)
[2019-10-14] MEDS ORDERED: CYANOCOBALAMIN 1,000 MCG TAB PO SCH (09:00)
[2019-10-14] MEDS: NAPROXEN 250 MG TAB PO SCH ×2 (09:04→13:19)
[2019-10-14] MEDS: FAMOTIDINE 20 MG TAB PO SCH (09:04)
[2019-10-14] MEDS: HEPARIN 5000 UNIT/ML 1 ML VIAL SQ SCH ×3 (09:05→16:22)
[2019-10-14] MEDS: Ringers Lactate 1,000 ML IV SCH ×2 (09:05→16:00)
--- NOTE | 2019-10-14 10:34 | EKG ---
Test Date: 2019-10-14 Test Time: 09:08:36 Crumb Packer: CRAIG MEASUREMENT RESULTS: Intervals: Rate: 53 [place]: 152 QRSD: 70 QT: 456 QTc: 427 [place]: P: 61 [place]: 152 QRS: 76 T: 49 INTERPRETIVE STATEMENTS: Sinus bradycardia Septal infarct, age undetermined Abnormal ECG Compared to ECG 10/13/2019 09:57:06 Myocardial infarct finding now present Sinus rhythm no longer present Electronically Signed On 10-14-19 10:33:26 TECHNICAL ASSISTANT by Shakeel Calzada
[2019-10-14 12:00] VITALS: O2SAT 98
--- NOTE | 2019-10-14 13:18 | ECHO ---
HEIGHT: 6 ft 0 in WEIGHT: 118 lb 0 oz DATE OF STUDY: 10/14/[address]: Marta Aguilar MD 2-DIMENSIONAL: YES M.MODE: YES DOPPLER: YES COLOR FLOW: YES TDS: YES PORTABLE: NO DEFINITY: NO BUBBLE STUDY: NO DIAGNOSIS: CEREBRAL VASCULAR ACCIDENT CARDIAC HISTORY: CATHERIZATION: NO SURGERY: NO PROSTHETIC VALVE: NO PACEMAKER: NO MEASUREMENTS (cm) DIASTOLIC (NORMALS) SYSTOLIC (NORMALS) IVSd 0.8 (0.6-1.2) LA Diam 2.9 (1.9-4.0) LVEF 56% LVIDd 4.4 (3.5-5.7) LVIDs 3.1 (2.0-3.5) %FS 29% LVPWd 0.9 (0.6-1.2) Ao Diam 3.2 (2.0-3.7) 2 DIMENSIONAL ASSESSMENT: RIGHT ATRIUM: NORMAL LEFT ATRIUM: NORMAL RIGHT VENTRICLE: NORMAL LEFT VENTRICLE: NORMAL TRICUSPID VALVE: NORMAL MITRAL VALVE: NORMAL PULMONIC VALVE: NORMAL AORTIC VALVE: NORMAL PERICARDIAL EFFUSION: NONE AORTIC ROOT: NORMAL LEFT VENTRICULAR WALL MOTION: NORMAL. DOPPLER/COLOR FLOW: NORMAL. COMMENTS: NORMAL 2D ECHO WITH DOPPLER. NO WALL MOTION ABNORMALITY. NO EFFUSION. NO VEGETATION. TECHNOLOGIST: ISIAH MORRISON
[2019-10-14] MEDS ORDERED: Magnesium Sulfate 2gm IVPB 2 G/50 ML BAG IV ONE (15:29)
--- NOTE | 2019-10-14 16:03 | P.DS ---
Admission Date: 10/13/19 Discharge Date: 10/14/19 Disposition: ROUTINE DISCHARGE Discharge Condition: GOOD Brief History of Present Illness: Patient admitted for 2 day intermittent chest pain , see full HPI Hospital Course: On admission , noted with extensive bruises to posterior left leg as well as sternal chest pain with tenderness more over right parasternal border. A CXR shows fracture of 9th right rib fracture. He was started on IVF and naproxen for pain control. His troponin was 0.08 and trending down to 0.05. He was started on nicotine patch also . An Echo shows normal wall motion as well as EF . patient will be discharge home and advised to follow with outpatient cardiology electively for consideration of stress test . H ahd mild anemia and started on folic acid now Vital Signs/Physical Exam: Temp Pulse Resp BP Pulse Ox 97.5 F 55 18 111/70 98 10/14/19 12:00 10/14/19 12:00 10/14/19 12:00 10/14/19 12:00 10/14/19 12:00 General: Alert, In no apparent distress, Oriented x3 HEENT: Atraumatic, Normocephalic, PERRLA, Mucous membr. moist/pink Neck: Supple, 2+ carotid pulse no bruit, JVD not distended Respiratory: Clear to auscultation bilaterally, Normal air movement Cardiovascular: No edema, Normal pulses Gastrointestinal: Normal bowel sounds, Soft and benign Musculoskeletal: No clubbing, No swelling Integumentary: No rashes, No breakdown Neurological: Normal gait, Normal speech, Normal strength at 5/5 x4 extr, Normal tone External genitalia: No edema, No lesions Laboratory Data at Discharge: WBC 3.8 K/uL (4.3-10.9) L D 10/14/19 03:33 Hgb 9.5 g/dL (13.6-17.9) L 10/14/19 08:48 Hct 26.2 % (39.6-49.0) L D 10/14/19 03:33 Plt Count 147 K/uL (152-406) L D 10/14/19 03:33 PT 11.9 SECONDS (9.2-12.8) 10/13/19 10:10 INR 1.00 10/13/19 10:10 Sodium 131 mmol/L (136-145) L 10/13/19 10:10 Potassium 3.8 mmol/L (3.5-5.1) 10/13/19 10:10 BUN 5 mg/dL (7-18) L 10/13/19 10:10 Creatinine 0.78 mg/dL (0.55-1.3) 10/13/19 10:10 Glucose 85 mg/dL (74-106) 10/13/19 10:10 Magnesium 3.0 mg/dL (1.8-2.4) H D 10/14/19 15:18 Total Bilirubin 1.2 mg/dL (0.2-1.0) H 10/13/19 10:10 AST 32 U/L (15-37) 10/13/19 10:10 ALT 22 U/L (12-78) 10/13/19 10:10 Alkaline Phosphatase 94 U/L (45-117) 10/13/19 10:10 Troponin I 0.05 ng/mL (0.0-0.045) H 10/14/19 03:33 Triglycerides 78 mg/dL (<150) 10/14/19 03:33 Cholesterol 89 mg/dL (<200) 10/14/19 03:33 HDL Cholesterol 36 mg/dL (40-60) L 10/14/19 03:33 Cholesterol/HDL Ratio 2.47 10/14/19 03:33 Home Medications: Famotidine [Pepcid*] 20 mg PO BID #60 tab 10/14/19 Folic Acid/Multivit,Iron,[place] [One Daily Maximum Tablet] 1 each PO DAILY #30 tablet 10/14/19 Naproxen [Naprosyn*] 250 mg PO TID #30 tab 10/14/19 Nicotine [Nicoderm*] 21 mg TD DAILY #14 patch.td24 10/14/19 New Medications: Famotidine [Pepcid*] 20 mg PO BID #60 tab Folic Acid/Multivit,Iron,Immigration Lawyer [One Daily Maximum Tablet] 1 each PO DAILY #30 tablet Naproxen [Naprosyn*] 250 mg PO TID #30 tab Nicotine [Nicoderm*] 21 mg TD DAILY #14 patch.td24 Patient Discharge Instructions: Return to ER if recurrent chest pain or SOB Diet: Regular Activity: Ad darlin Followup: Bentley Dunne MD [ACTIVE - CAN ADMIT] -
[2019-10-14 16:18] VITALS: BP 112/62; TEMP 97
[2019-10-14] MEDS: NITROGLYCERIN 0.2 MG/HR (5 MG) PATCH TD SCH (16:23)
== END 2019-10-14 16:35 | disposition home or self-care (01) ==
LOC: ER 09:16 → ERHOLD 15:26 → 4TH 16:32
PROVIDERS: ADMIT Internal Medicine; ATTEND Internal Medicine
DX: S22.31XA Fracture of one rib, right side, initial encounter for closed fracture (principal); W18.30XA Fall on same level, unspecified, initial encounter; Y92.009 Unspecified place in unspecified non-institutional (private) residence as the place of occurrence of the external cause; Z91.81 History of falling; F17.210 Nicotine dependence, cigarettes, uncomplicated; R07.89 Other chest pain; F10.10 Alcohol abuse, uncomplicated
CPT/HCPCS: 36415; 71045; 71275; 80048; 80061; 80076; 80320; 81001; 83735; 83880; 84484; 85018; 85025; 85610; 87086; 87088; 93005; 93306; 93971; 96372; 96374; 99285; G0378; J1644; J1650; J3475; J7120; Q9967